=== PATIENT | female | born 1950 | race African-American/Black ===

== ENCOUNTER 2020-07-22 15:27 | Emergency (ER) | payer OTHER ==
[~2020-07-22] VITALS: Ht 160 cm; Wt 102.1 kg
[~2020-07-22 15:27] MED LIST: CARVEDILOL12.5 MG PO; CLONIDINE HCL0.2 M2 GT; FUROSEMIDE 40 M40 M1 PO; LANSOPRAZOLE30 MG PO; LOPRESSOR25 PO; LORAZEPAM 0.50.5 MG PO; METOCLOPRAMIDE10 MG PO; SERTRALINE HCL100 MG PO; ZANTAC 150MG T150 M1 PO
[2020-07-22 16:28] LABS: ABSOLUTE NEUTROPHILS 4.9 thou/uL (1.4-8.2); BASOPHILS 1.4 % (0.0-2.0); EOSINOPHILS 1.2 % (0.0-3.0); HEMATOCRIT 36.1 % (37.0-47.0); HEMOGLOBIN 11.9 gm/dL (12.0-15.0); LYMPHOCYTES 23.9 % (24.0-44.0); MCH 30.2 pg (26.0-34.0); MCHC 32.9 g/dL (28.0-37.0); MCV 91.8 fL (80.0-100.0); MONOCYTES 9.8 % (1.0-8.0); PLATELET COUNT 241 thou/uL (150-400); POLYS 63.7 % (36.0-66.0); RBC 3.94 mil/uL (4.20-5.00); RDW 16.4 % (10.5-14.5); WBC 7.6 thou/uL (4.0-11.0)
[2020-07-22 16:44] LABS: ANION GAP 9 mmol/L (7-16); BUN 13 mg/dL (7-18); CHLORIDE 106 mmol/L (98-107); CO2 29 mmol/L (21-32); CREATININE 0.5 mg/dL (0.6-1.0); GLUCOSE 101 mg/dL (74-106); POTASSIUM 3.7 mmol/L (3.5-5.1); SODIUM 144 mmol/L (136-145)
[2020-07-22 16:52] LABS: TROPONIN-I <0.06 ng/mL (<0.06)
[2020-07-22 19:31] VITALS: BP 161/71
--- NOTE | 2020-07-23 08:45 | EKG ---
[facility] [place] [address] [place] [address] ELECTROCARDIOGRAM REPORT Name: TEA FAUST V Room #: DEP [facility]#: [id number] Admission: 07/22/20 Attend Phys: Discharge: 07/22/20 Date of : 50 Report #: [id number] THIS REPORT FOR: cc: Luis Decker MD, Patrick S. MD Santiago, Patrick MD [facility] THIS REPORT FOR: //name// [facility] ED Test Date: 2020-07-22 Test Time: 15:44:37 Pat Name: TEA FAUST Department: Room: Gender: F Mine Shifter: NO : 1950 Requested By: Jeremias Calderon Order Number: [id number] MD: Luis Florence Measurements Intervals [place] Rate: 85 P: 22 CO: 145 QRS: 6 QRSD: 84 T: 6 QT: 387 QTc: 461 Interpretive Statements Sinus rhythm Probable left atrial enlargement Left ventricular hypertrophy Compared to ECG 05/24/2011 17:49:33 Left ventricular hypertrophy now present Electronically Signed On 07-23-2020 8:45:29 CDT by Luis Florence [email or web address] <ELECTRONICALLY SIGNED> By: Luis Florence MD, FAC 07/23/20 0845 1544 1544 Luis Florence MD, [facility] /EPI
== END 2020-07-22 19:45 | disposition home or self-care (01) ==
LOC: ER 15:27
PROVIDERS: Emergency Medicine
DX: U07.1 COVID-19 (principal); R45.851 Suicidal ideations; F10.920 Alcohol use, unspecified with intoxication, uncomplicated; I10 Essential (primary) hypertension; N64.4 Mastodynia; E66.01 Morbid (severe) obesity due to excess calories; Z90.711 Acquired absence of uterus with remaining cervical stump; Z79.899 Other long term (current) drug therapy; Z88.5 Allergy status to narcotic agent; Z68.39 Body mass index [BMI] 39.0-39.9, adult

== ENCOUNTER 2021-02-14 18:40 | Observation (INO) | payer OTHER ==
[~2021-02-14] VITALS: Ht 152.4 cm; Wt 120.2 kg
[2021-02-14 18:40] VITALS: BP 200/94
[2021-02-14 19:02] LABS: ABSOLUTE NEUTROPHILS 4.7 thou/uL (1.4-8.2); BASOPHILS 0.9 % (0.0-2.0); EOSINOPHILS 1.8 % (0.0-3.0); HEMATOCRIT 42.3 % (37.0-47.0); LYMPHOCYTES 30.4 % (24.0-44.0); MCH 30.1 pg (26.0-34.0); MCHC 33.1 g/dL (28.0-37.0); MCV 91.1 fL (80.0-100.0); PLATELET COUNT 238 thou/uL (150-400); POLYS 57.9 % (36.0-66.0); RBC 4.64 mil/uL (4.20-5.00); RDW 13.8 % (10.5-14.5); WBC 8.1 thou/uL (4.0-11.0)
[2021-02-14 19:11] LABS: ANION GAP 9 mmol/L (7-16); BUN 20 mg/dL (7-18); CALCIUM 9.1 mg/dL (8.5-10.1); CHLORIDE 106 mmol/L (98-107); CO2 29 mmol/L (21-32); CREATININE 0.8 mg/dL (0.6-1.0); GLUCOSE 100 mg/dL (74-106); POTASSIUM 3.5 mmol/L (3.5-5.1); SODIUM 144 mmol/L (136-145)
[2021-02-14 19:21] LABS: ALBUMIN 3.6 g/dL (3.4-5.0); LIPASE 37 U/L (73-393); SGOT 14 U/L (15-37); SGPT 15 U/L (14-59); TOTAL PROTEIN 7.5 g/dL (6.4-8.2); TROPONIN-I <0.06 ng/mL (<0.06)
[2021-02-14] MEDS ORDERED: FAMOTIDINE40 MG PO (19:56)
[2021-02-14] MEDS ORDERED: ROXICODONE30 MG PO (19:57)
[2021-02-14] MEDS ORDERED: OXYBUTYNIN CHLO10 MG PO (19:57)
[2021-02-14] MEDS ORDERED: SYMBICORT160 MCG/4. INH (19:58)
[2021-02-14] MEDS ORDERED: AMLODIPINE BESY10 MG PO (20:01)
[2021-02-14] MEDS ORDERED: TRAZODONE HCL50 MG PO (20:02)
[2021-02-14] MEDS ORDERED: VALSARTAN160 MG PO (20:03)
[2021-02-14] MEDS ORDERED: POTASSIUM CHLO10 ME1 PO (20:03)
[2021-02-14] MEDS ORDERED: CLONIDINE HCL0.1 MG PO (20:04)
[2021-02-14 21:10] VITALS: BP 166/74
[2021-02-14 21:40] VITALS: BP 147/84
[2021-02-15 04:17] VITALS: BP 99/46
--- NOTE | 2021-02-15 05:16 | NUR ---
ADMIT PT ADMITTED TO ROOM 360 FROM ED FOR CHEST PAIN. PT REPORTED IT HAS BEEN GOING ON 2 DAYS HAS BEEN USING ANTIACIDS, MAYBE TUMS BUT GOT NO RELIEF. PT UP WITH SBA GAIT BELT AND WALKER GAITY STEADY ABLE TO VOID IN BR. IVF'S NS INFUSING AT 75CC/HR. PT REPORTED PAIN TO RUQ AND ORDER FOR 1 TIME DOSE TRAMADOL 50 MG AND ONETIME DOSE OF KETORALAC 30 MG GIVEN IVP PT SLEPT FOR A COUPLE OF HOURS AFTER. NITRO PASTE APPLIE TO RIGHT CHEST IN ED TO BRING DOWN PRESSURE
[2021-02-15 05:41] LABS: ABSOLUTE NEUTROPHILS 2.9 thou/uL (1.4-8.2); EOSINOPHILS 1.7 % (0.0-3.0); HEMATOCRIT 39.6 % (37.0-47.0); HEMOGLOBIN 12.9 gm/dL (12.0-15.0); LYMPHOCYTES 36.1 % (24.0-44.0); MCH 29.4 pg (26.0-34.0); MCHC 32.5 g/dL (28.0-37.0); MCV 90.5 fL (80.0-100.0); PLATELET COUNT 204 thou/uL (150-400); POLYS 51.2 % (36.0-66.0); RBC 4.38 mil/uL (4.20-5.00); RDW 13.7 % (10.5-14.5); WBC 5.7 thou/uL (4.0-11.0)
[2021-02-15 05:56] LABS: ANION GAP 7 mmol/L (7-16); BUN 20 mg/dL (7-18); CALCIUM 8.6 mg/dL (8.5-10.1); CHLORIDE 107 mmol/L (98-107); CO2 27 mmol/L (21-32); CREATININE 0.7 mg/dL (0.6-1.0); GLUCOSE 92 mg/dL (74-106); POTASSIUM 3.6 mmol/L (3.5-5.1); SGOT 10 U/L (15-37); SGPT 6 U/L (30-65); SODIUM 141 mmol/L (136-145); TOTAL BILIRUBIN 0.8 mg/dL (0.2-1.0); TOTAL PROTEIN 6.4 g/dL (6.4-8.2)
[2021-02-15 07:55] VITALS: BP 158/70
[2021-02-15 08:10] LABS: TROPONIN-I <0.06 ng/mL (<0.06)
[2021-02-15 11:17] VITALS: BP 134/61
[2021-02-15 12:57] VITALS: BP 134/61
--- NOTE | 2021-02-16 07:01 | EKG ---
[address] [address] ELECTROCARDIOGRAM REPORT Name: TEA FAUST V Room #: 360-[facility]#: [id number] Admission: 02/14/21 Attend Phys: Davie Murdock MD Discharge: 02/15/21 Date of : 50 Report #: [id number] [facility] ED Test Date: 2021-02-14 Test Time: 18:50:03 Pat Name: TEA FAUST Department: Room: [facility] Gender: F Corporate Auditor: : 1950 Requested By: Davie Murdock Order Number: [id number] MD: Luis Florence Measurements Intervals [place] Rate: 85 P: 37 [place]: 145 QRS: 8 QRSD: 81 T: 22 QT: 381 QTc: 453 Interpretive Statements Sinus rhythm Left ventricular hypertrophy Borderline T abnormalities, anterior leads Compared to ECG 07/22/2020 15:44:37 T-wave abnormality now present Electronically Signed On 02-16-2021 7:00:59 CDT by Luis Florence [email or web address] <ELECTRONICALLY SIGNED> By: Luis Florence MD, [facility] 04/05/03 [phone] Luis Florence MD, FAC /EPI
== END 2021-02-15 14:10 | disposition home or self-care (01) ==
LOC: ER 18:40 → 3W 21:06 → EROBS 21:06 → 3W 21:06
PROVIDERS: Emergency Medicine; Nurse Practitioner; ADMIT Hospitalist; ATTEND Hospitalist
DX: R07.89 Other chest pain (principal); I10 Essential (primary) hypertension; Z79.899 Other long term (current) drug therapy; Z86.19 Personal history of other infectious and parasitic diseases
CPT/HCPCS: 10879

== ENCOUNTER 2021-08-30 11:37 | Inpatient (IN) | payer OTHER ==
[~2021-08-30] VITALS: Ht 160 cm; Wt 118.8 kg
--- NOTE | ~2021-08-30 | HC ---
[facility] [place] [address] CONSULTATION Name: TEA FAUST V Room #: [facility]- ADM IN M.R.#: [id number] Admission: 08/30/21 Attend Phys: Jimmie Brewer MD Discharge: Date of : 50 Report #: [id number] THIS REPORT FOR: cc: [facility] - Clinic physician unknown [facility] - Clinic physician unknown Flaco Sotomayor MD ~ DATE OF SERVICE: 08/31/2021 HISTORY OF PRESENT ILLNESS: This is a 70-year-old female patient who was evaluated by me for any neurological etiology for the patient's dizziness. I reviewed this patient's records. It would appear this patient feels dizzy when she tries to walk. This patient has respiratory problems. She said she was never a smoker and her respiratory problem started in August of last year with COVID. She is feeling better after coming to the hospital. She is being evaluated by multiple consultants, which include a hydrotreater operator as well as Cardiology. REVIEW OF SYSTEMS: Positive for chronic diastolic heart failure. She has a history of anxiety and diabetes. She got COVID last year. She does have a sleep apnea, but she does not take the CPAP on a regular basis. In fact, she very rarely takes that according to her. She has been seen by primary care recently. In fact, she went to them with the same problem. Review of systems also indicated that she said she had a stroke when she was young. When I asked her why she had a stroke, she said the doctor in [place] told her that it was because of bad tooth. So it is possible she had a subacute bacterial endocarditis, which caused her stroke. This was a relevant 14-point review of systems. She is not complaining of any new eye, ENT problems. She does have significant baseline cardiac problem, but she is not having any symptoms now, which is active. She does have still a significant respiratory difficulty. She does have some nausea, but did not complain to me anything about GI, musculoskeletal, constitutional, dermatological, hematological. She does have anxiety. PAST MEDICAL HISTORY: Positive for significant respiratory problem and respiratory problem appeared to be secondary to COVID as I understand because she said she was never a smoker. FAMILY HISTORY: Positive for stroke according to the patient. SOCIAL HISTORY: She said she never smoked or drank any alcohol. PHYSICAL EXAMINATION: VITAL SIGNS: Blood pressure is 142/63, respirations 22, pulse is 67, temperature is 98.1. HEENT: Her hearing and vision looks adequate. NECK: She has no thyroid mass. She has no carotid bruit. [address] [address] CONSULTATION Name: TEA FAUST V Room #: [facility] IN ..#: [id number] Admission: 08/30/21 Attend Phys: Jimmie Brewer MD Discharge: Date of : 50 Report #: [id number] LUNGS: She does have significant respiratory difficulty. ABDOMEN: She is morbidly obese. NEUROLOGIC: The patient's examination indicate that she is alert. She is responsive. She can follow simple commands. Her speech looks intact. Her memory and fund of knowledge is at her baseline. Cranial nerve examination II-XII does not appear to be showing any definite abnormality, but she said she has a different facial reaction all her life. To me, she moves all 4 extremities and does not appear to be having any evidence of old stroke. Her position sense is intact in all 4 extremities. Both plantars appear to be downgoing. LABORATORY DATA: White count is 5.6. Pulses are difficult to feel in the lower extremities, but she has no edema. Lab indicate a white count of 5.6 and GFR is 86. Her testing was reviewed. She had an MRI of the brain, which does not show any acute changes in the brain. She had a carotid Doppler, which was unremarkable. MRI does show what appeared to be pretty significant spinal stenosis as indicated in radiologist's notes. IMPRESSION: I do not think there is any neurological etiology for the patient's dizziness, it is most likely related to her desaturation and baseline cardiac problem because it comes only when she walks. I do not think any further neurological testing is indicated in this patient. I will sign off. This patient does have a pretty significant spinal stenosis on the portion of the cervical spine, which can be seen. I am not sure how good a candidate she is for neurosurgery consult and they can give their opinion also. Please call me if there is any question. Otherwise, I will sign off. By: 1459 [id number] Flaco Sotomayor MD /nt
--- NOTE | ~2021-08-30 | EMS ---
[place] [id number] EMS Patient Care Report Name: TEA FAUST V Room #: 212-P ADM IN M.R.#: [id number] Admission: 08/30/21 Attend Phys: Jimmie Brewer MD Discharge: Date of : 50 Report #: [id number] THIS REPORT FOR: //name// Report Transmitted: 08/31/2021 08:48 EMS Care Summary [place], [place]/[facility] Incident [id number] @ 08/30/2021 11:01 Incident Location [address] [place] [address] Patient TEA FAUST Female, 70 Years 1950 Patient Address [address] [place] [address] Patient History Congestive Heart Failure (CHF), Patient Allergies Codeine,Morphine, Patient Medications Lasix, Chief Complaint dizzy/light headed Disposition Transported No Lights/[place] Dispatch Reason Sick Person Transported To [facility] Narrative patient is found walking around the scene. patient states that for the last two days she has been dizzy and a little light headed. patient is also stating that is feeling weaker than normal. patient denies any pain or shortness of breath. patient denies any trauma or injury. patient is alert and talking. patient has [address] [address] EMS Patient Care Report Name: TEA FAUST V Room #: 212-P [facility] IN [facility].#: [id number] Admission: 08/30/21 Attend Phys: Jimmie Brewer MD Discharge: Date of : 50 Report #: [id number] no other complaints and stays alert during transport. Initial Vitals @11:16P: 81,R: 16,BP: 209/72,Pain: 0/10,GCS: 15,Glucose: 110,Revised Trauma: 12, Assessments @11:14MENTAL:No Abnormalities,SKIN:No Abnormalities,HEENT:Head/Face: No Abnormalities,Eyes: No Abnormalities,Neck/Airway: No Abnormalities,LUNG SOUNDS:General: No Abnormalities,Left Upper: No Abnormalities,Right Upper: No Abnormalities,Left Lower: No Abnormalities,Right Lower: No Abnormalities,ABDOMEN:General: No Abnormalities,Left Upper: No Abnormalities,Right Upper: No Abnormalities,Left Lower: No Abnormalities,Right Lower: No Abnormalities,PELVIS//GI:No Abnormalities,EXTREMITIES:Left Arm: No Abnormalities,Right Arm: No Abnormalities,Left Leg: No Abnormalities,Right Leg: No Abnormalities,PULSE:NEURO:No Abnormalities, Impression Generalized Weakness Procedures @11:20 General Comments Response: Unchanged @11:14 ALS Assessment Response: UnchangedSucceeded @11:15 Stretcher Response: Unchanged Timeline 10:59,Call Received 10:59,Dispatch Notified 11:01,Dispatched 11:02,En Route 11:12,On Scene 11:14,At Patient 11:14,ALS Assessment,Response: UnchangedSucceeded, 11:15,Stretcher,Response: Unchanged 11:16,BP: 209/72 M,PULSE: 81,RR: 16 R,SPO2: Ox,ETCO2: ,B,PAIN: 0,GCS: 15, 11:20,General Comments,Response: Unchanged 11:21,Depart Scene 11:33,At Destination 11:49,Call Closed Disclaimer v1.1 Copyright 2020 [employer] This EMS Care Summary contains data elements from the applicable legal record (which may be displayed differently). It is designed to provide pertinent information for the following purposes: continuity of care, clinical quality, [address] [place] [address] EMS Patient Care Report Name: TEA FAUST [place] Room #: 212-P ADM IN ..#: [id number] Admission: 08/30/21 Attend Phys: Jimmie Brewer MD Discharge: Date of : 50 Report #: [id number] and state data reporting. The complete legal record is available to ED staff and administrators of the receiving hospital in [address] Patient Tracker. All data is provided "as is."
[~2021-08-30 11:37] MED LIST changes: +AMLODIPINE BESY10 MG PO; +CLONIDINE HCL0.1 MG PO; +FAMOTIDINE40 MG PO; +OXYBUTYNIN CHLO10 MG PO; +POTASSIUM CHLO10 ME1 PO; +ROXICODONE30 MG PO; +SYMBICORT160 MCG/4. INH; +TRAZODONE HCL50 MG PO; +VALSARTAN160 MG PO
[2021-08-30 11:38] VITALS: BP 153/76
[2021-08-30 12:23] LABS: HEMOGLOBIN 14.1 gm/dL (12.0-15.0); MCH 28.9 pg (26.0-34.0); MCHC 32.7 g/dL (28.0-37.0); MCV 88.4 fL (80.0-100.0); RBC 4.87 mil/uL (4.20-5.00); RDW 13.7 % (10.5-14.5); WBC 5.6 thou/uL (4.0-11.0)
[2021-08-30 12:40] LABS: ANION GAP 9 mmol/L (7-16); BUN 24 mg/dL (7-18); CALCIUM 9.3 mg/dL (8.5-10.1); CHLORIDE 105 mmol/L (98-107); CO2 28 mmol/L (21-32); CREATININE 0.9 mg/dL (0.6-1.0); GLUCOSE 121 mg/dL (74-106); POTASSIUM 3.6 mmol/L (3.5-5.1); SODIUM 142 mmol/L (136-145)
[2021-08-30 12:48] LABS: ALBUMIN 3.4 g/dL (3.4-5.0); MAGNESIUM 2.2 mg/dL (1.8-2.4); PHOSPHORUS 4.6 mg/dL (2.5-4.9); SGOT 32 U/L (15-37); SGPT 13 U/L (30-65); TOTAL BILIRUBIN 0.9 mg/dL (0.2-1.0); TOTAL PROTEIN 7.2 g/dL (6.4-8.2)
[2021-08-30 12:55] LABS: SALICYLATE < 2.8 mg/dL (2.8-20.0)
[2021-08-30 13:19] LABS: URINE BILIRUBIN NEGATIVE (Negative); URINE BLOOD TRACE (Negative); URINE CLARITY CLEAR; URINE COLOR YELLOW; URINE GLUCOSE-RANDOM* NEGATIVE (Negative); URINE KETONES NEGATIVE (Negative); URINE LEUKOCYTES-REFLEX NEGATIVE (Negative); URINE NITRITE-REFLEX NEGATIVE (Negative); URINE PROTEIN (DIPSTICK) NEGATIVE (Negative); URINE SPECIFIC GRAVITY >= 1.030 (1.005-1.035); URINE UROBILINOGEN 0.2 E.U./dl (0.2-1.0)
[2021-08-30 13:28] LABS: AMP/METHAMP Negative (Negative); BARBITURATES Negative (Negative); BENZODIAZEPINES Negative (Negative); COCAINE Negative (Negative); METHADONE Negative (Negative); OPIATES POSITIVE (Negative); PCP Negative (Negative)
--- NOTE | 2021-08-30 15:37 | EKG ---
[place] [address] [facility] [place] [address] ELECTROCARDIOGRAM REPORT Name: TEA FAUST V [facility] [id number] Admission: 08/30/21 Attend Phys: Discharge: Date of : 50 Report #: [id number] [facility] ED Test Date: 2021-08-30 Test Time: 11:44:29 Pat Name: TEA FAUST Department: Room: Gender: F Natural Resource Technician: DAVE : 1950 Requested By: Rufino Chand Order Number: [id number] MD: Luis Florence Measurements Intervals [place] Rate: 71 P: 6 UT: 169 QRS: 4 QRSD: 94 T: 2 QT: 412 QTc: 448 Interpretive Statements Sinus rhythm Probable left atrial enlargement Left ventricular hypertrophy Borderline T abnormalities, anterior leads Compared to ECG 02/14/2021 18:50:03 No significant changes Electronically Signed On 08-30-2021 15:37:40 CDT by Luis Florence [email or web address] <ELECTRONICALLY SIGNED> By: Luis Florence MD, [facility] 08/30/21 1537 1144 1144 Lusi Florence MD, FACC /EPI
[2021-08-30 20:14] VITALS: BP 159/63
[2021-08-30 20:31] VITALS: BP 147/57
[2021-08-30 20:47] LABS: ALBUMIN 3.6 g/dL (3.4-5.0); TOTAL PROTEIN 6.9 g/dL (6.4-8.2)
[2021-08-30 20:50] VITALS: BP 156/71
[2021-08-31] VITALS (9 sets, daily range): BP systolic 118–165; BP diastolic 47–84
[2021-08-31 05:43] LABS: HEMATOCRIT 41.3 % (37.0-47.0); HEMOGLOBIN 13.6 gm/dL (12.0-15.0); MCH 29.3 pg (26.0-34.0); MCV 88.9 fL (80.0-100.0); RBC 4.64 mil/uL (4.20-5.00); RDW 13.7 % (10.5-14.5); WBC 5.6 thou/uL (4.0-11.0)
[2021-08-31 05:45] LABS: CREATININE 0.8 mg/dL (0.6-1.0); POTASSIUM 4.3 mmol/L (3.5-5.1)
--- NOTE | 2021-08-31 08:12 | NUR ---
ADMITTED THIS PATIENT FROM THE EMERGENCY AT [facility] 2049H ,PATIEN TIS ALERT AN DORIENTED X4.NO COMPLAINTS OF PAIN.NOT IN DISTRESS.ON NASAL CANNULA AT 3LPM, SATURATING WELL.ADMISSION COMPLETED.ALL NEEDS ATTENDED.
--- NOTE | 2021-08-31 13:52 | 2DMMODE ---
[facility] [address] [place] [address] 2 D/M-MODE ECHOCARDIOGRAM Name: TEA FAUST V Room #: 212-P ADM IN M.R.#: [id number] Admission: 08/30/21 Attend Phys: Jimmie Brewer MD Discharge: Date of : 50 Report #: [id number] THIS REPORT FOR: cc: [facility] - Clinic physician unknown [facility] - Clinic physician unknown Luis Florence MD [facility] ~ APPROVED REPORT Study performed: 08/31/2021 12:49:05 EXAM: Comprehensive 2D, Doppler, and color-flow Echocardiogram Patient Location: Bedside Room #: 212 Status: routine BSA: 2.17 HR: 66 bpm BP: 134/55 mmHg Rhythm: NSR Other Information Study Quality: Fair Indications COPD Dyspnea Hypertension/HDD Morbid obesity 2D Dimensions IVSd: 10.15 (7-11mm) LVOT Diam: 19.89 (18-24mm) LVDd: 50.35 mm PWd: 9.92 (7-11mm) Ascending Ao: 37.43 (22-36mm) LVDs: 28.88 (25-40mm) Left Atrium: 36.41 (27-40mm) Aortic Root: 30.88 mm Aortic Valve AoV Peak Reggie.: 2.52 m/s AO Peak Gr.: 25.37 mmHg LVOT Max P.07 mmHg AO Mean Gr.: 15.19 mmHg LVOT Mean P.30 mmHg AO V2 Mean: 1.81 m/s LVOT Max V: 1.23 m/s AO V2 VTI: 63.63 cm LVOT Mean V: 0.83 m/s SHARDA (VTI): 1.55 cm2 LVOT V1 VTI: 31.79 cm SHARDA Vmax: 1.52 cm2 [facility] [place] [place] [address] 2 D/M-MODE ECHOCARDIOGRAM Name: TEA FAUST Socorro Room #: [address] [place] [address].#: [id number] Admission: 08/30/21 Attend Phys: Jimmie Brewer, Discharge: Date of : 50 Report #: [id number] SV (LVOT): 98.76 mL Mitral Valve E/A Ratio: 0.7 MV Decel. Time: 307.66 ms MV E Max Reggie.: 0.81 m/s MV A Reggie.: 1.21 m/s MV PHT: 89.22 ms IVRT: 110.73 ms Pulmonary Valve PV Peak Reggie.: 1.12 m/s PV Peak Gr.: 5.03 mmHg Pulmonary Vein P Vein S: 0.55 m/s P Vein A: 0.36 m/s P Vein D: 0.33 m/s P Vein A Dur.: 138.4 msec P Vein S/D Ratio: 1.67 Tricuspid Valve TR Peak Reggie.: 2.27 m/s TR Peak Gr.: 20.69 mmHg PA Pressure: 21.00 mmHg Left Ventricle The left ventricle is normal size. There is normal LV segmental wall motion. There is normal left ventricular wall thickness. The left ventricular systolic function is normal. The left ventricular ejection fraction is within the normal range. LVEF is 60-65%. Grade I - abnormal relaxation pattern. Right Ventricle The right ventricle is normal size. The right ventricular systolic function is normal. Atria The left atrium size is normal. The right atrium size is normal. Aortic Valve The aortic valve is normal in structure. Aortic valve is calcified. Mild aortic regurgitation. Mild aortic stenosis. Mitral Valve The mitral valve is normal in structure. Trace mitral regurgitation. No evidence of mitral valve stenosis. [facility] [address] [place] [address] 2 D/M-MODE ECHOCARDIOGRAM Name: TEA FAUST V Room #: 212-P [facility] IN .R.#: [id number] Admission: 08/30/21 Attend Phys: Jimmie Brewer, Discharge: Date of : 50 Report #: [id number] Tricuspid Valve The tricuspid valve is normal in structure. There is trace tricuspid regurgitation. Estimated PAP 21 mmHg plus the right atrial pressure. There is no pulmonary hypertension. Pulmonic Valve The pulmonary valve is normal in structure. There is no pulmonic valvular regurgitation. Great Vessels The aortic root is normal in size. The inferior vena cava is not well visualized. Pericardium There is no pericardial effusion. <Conclusion> Normal left ventricle size/wall thickness central ejection fraction 60-65% Normal right ventricular size/function Normal right ventricle size/function Normal atrial size Mild aortic valve stenosis mean gradient of 15 mmHg Mild mitral annular calcification Trace tricuspid valve insufficiency Pulmonary systolic pressure estimated 21 mmHg No pericardial effusion Normal aortic root size <ELECTRONICALLY SIGNED> By: Luis Florence MD, FACC 08/31/21 1352 135 51 Luis Florence MD, FACC /INF
--- NOTE | 2021-08-31 17:47 | NUR ---
PT IS A/OX4, ABLE TO MAKE NEEDS KNOWN. VSS,AFEBRILE. SR ON MONITOR. ORHTOSTATIC BP, ECHO AND MRI OF HEAD DONE TODAY. IV IN RIGHT AC WITH SOME POSITIONAL PAIN. ABULATES WITH SLOW UNSTEADY GAIT SBA. POC TO FOLLOW UP WITH PULMONOLOGY IN AM. PT/OT EVALUATED TODAY NO CONCERNS AT THIS TIME. FALL PRECAUTIONS IN PLACE.
--- NOTE | 2021-08-31 18:22 | NUR ---
met with patient. She [place] no steps. She uses no assistive device for ambulation prior to admission. She has caregiver in home 7 days a week for 4 hours a day. She reports she spent 91 days in hospital [facility] with YANET. She reports she rec HH with [facility] at that time. Patient has home oxygen with [employer]. she uses prn. Discussed HH care patient unsure if needed. She has pulse oximetry at home and blood pressure cuff. She reports supportive family and children. gave HH list for review. [facility] following.
--- NOTE | 2021-09-01 02:35 | NUR ---
PT IS ALERT AND ORIENTED X4. LUNGS ARE CLEAR. ON 3 LITERS NASAL CANULA. DENIES ANY COMPLAINTS OF PAIN . FAMILY VISITING THIS EVENING. ABDOMEN IS ROUND AND OBESE BOWEL SOUNDS ACTIVE X4. NO DIZZINESS NOTED UPON STANDING. CALL LIGHT WITHIN REACH IF NEEDS ASSISTANCE PER NURSING.
[2021-09-01 05:25] LABS: CALCIUM 9.2 mg/dL (8.5-10.1); CREATININE 0.8 mg/dL (0.6-1.0); MAGNESIUM 2.2 mg/dL (1.8-2.4); POTASSIUM 4.7 mmol/L (3.5-5.1)
[2021-09-01 05:32] LABS: HEMATOCRIT 39.7 % (37.0-47.0); HEMOGLOBIN 12.9 gm/dL (12.0-15.0); MCH 29.3 pg (26.0-34.0); MCHC 32.6 g/dL (28.0-37.0); MCV 89.8 fL (80.0-100.0); RBC 4.42 mil/uL (4.20-5.00); RDW 14.1 % (10.5-14.5); WBC 13.3 thou/uL (4.0-11.0)
[2021-09-01 07:24] VITALS: BP 133/58
[2021-09-01 20:26] VITALS: BP 136/55
[2021-09-02 03:21] VITALS: BP 138/65
[2021-09-02 03:45] LABS: HEMATOCRIT 39.7 % (37.0-47.0); HEMOGLOBIN 12.7 gm/dL (12.0-15.0); MCH 28.6 pg (26.0-34.0); MCV 89.5 fL (80.0-100.0); RBC 4.43 mil/uL (4.20-5.00); RDW 14.2 % (10.5-14.5); WBC 10.5 thou/uL (4.0-11.0)
[2021-09-02 05:51] LABS: CALCIUM 9.1 mg/dL (8.5-10.1); CREATININE 0.8 mg/dL (0.6-1.0); MAGNESIUM 2.3 mg/dL (1.8-2.4); POTASSIUM 4.6 mmol/L (3.5-5.1)
[2021-09-02 07:29] VITALS: BP 142/56
[2021-09-02 11:07] VITALS: BP 166/66
[2021-09-02] MEDS ORDERED: PREDNISONE 10 M10 MG PO (12:53)
[2021-09-02] MEDS ORDERED: LEVOFLOXACIN750 MG PO (12:53)
[2021-09-02 13:50] VITALS: BP 166/66
--- NOTE | 2021-09-02 14:34 | NUR ---
PT AFEBRILE, ADEQUATE UOP, NO BM, FAIR APPETITE. PT TO BE DC HOME TODAY WITH FAMILY. [employer] [place] CERVICAL COLLAR WAS PROVIDED, PT WAS EDUCATED ON PROPER USE AND FITTING. PT IS PLANNED TO SEE NEUROSURGERY ON 09/13/21, PT DOES NOT WANT TO WAIT LONGER FOR CT-SCAN, SHE STATES SHE WILL CALL AND SCHEDULE SAID PROCEDURE BEFORE 09/13, OUT-PT SCHEDULING PHONE NUMBER WAS PROVIDED. PT WILL HAVE C-COLLAR ON AT TIME OF DC. PT HAS BEEN THOUROUGHLY UPDATED AND EDUCATED ON PT CONDITION, POC, AND DC INSTRUCTIONS. PT PROGRESSED TOWARDS POC.
== END 2021-09-02 15:32 | disposition home or self-care (01) | DRG 193 ==
LOC: ER 11:37 → 2N 17:45 → EROBS 17:45 → 2N 20:31
PROVIDERS: Emergency Medicine; ADMIT Internal Medicine; ATTEND Internal Medicine
DX: J18.9 Pneumonia, unspecified organism (principal); J96.21 Acute and chronic respiratory failure with hypoxia; I50.32 Chronic diastolic (congestive) heart failure; Z88.8 Allergy status to other drugs, medicaments and biological substances; Z79.899 Other long term (current) drug therapy; J43.9 Emphysema, unspecified; I11.0 Hypertensive heart disease with heart failure; K21.9 Gastro-esophageal reflux disease without esophagitis; Z86.73 Personal history of transient ischemic attack (TIA), and cerebral infarction without residual deficits; F41.1 Generalized anxiety disorder; Z20.822 Contact with and (suspected) exposure to COVID-19; E86.0 Dehydration; M48.02 Spinal stenosis, cervical region
CPT/HCPCS: 10081

== ENCOUNTER → 2021-09-03 | Outpatient (CLI) | payer OTHER ==
[~2021-09-03] MED LIST changes: +LEVOFLOXACIN750 MG PO; +PREDNISONE 10 M10 MG PO
== END ==
LOC: RAD 11:18
DX: M47.812 Spondylosis without myelopathy or radiculopathy, cervical region (principal); M48.02 Spinal stenosis, cervical region

== ENCOUNTER → 2021-09-08 | Outpatient (CLI) | payer OTHER ==
[~2021-09-08] MED LIST changes: +IBUPROFEN 800800 M1 PO
[2021-09-08 14:55] LABS: APTT 24.7 Seconds (24.5-32.8); INR 1.02; PROTIME 11.1 Seconds (10.5-12.1)
== END ==
LOC: PAC 13:11
PROVIDERS: ATTEND Specialist
DX: Z01.812 Encounter for preprocedural laboratory examination (principal); M48.02 Spinal stenosis, cervical region

== ENCOUNTER 2021-09-13 07:54 | Inpatient (IN) | payer OTHER ==
[2021-09-13] VITALS (9 sets, daily range): BP systolic 150–204; BP diastolic 69–77
[~2021-09-13] VITALS: Ht 160 cm; Wt 118.1 kg
--- NOTE | 2021-09-13 19:15 | NUR ---
PT ARRIVED FROM IR TO ICU AT 1915. PT ARRIVED WITH C-COLLAR AND LUMBAR DRAIN IN PLACE. PT WAS TRANSFERED TO ICU BED, ATTACHED TO MONITORS, AND ASSESSED PER ICU PROTOCOL. PT IS A&OX4, C/O 8/10 PAIN IN HER NECK. INCISION AND DRAIN WERE VISUALIZED BEFORE IR NURSE LEFT. VERBAL ORDERS OBTAINED FROM FISHERIES OFFICER TO DRAIN 15 ML OFF DRAIN Q1H. [address] GUEVARA'S CHOCOLATE COATER TO CLARIFY ORDERS AND THAT NOTHING ELSE NEEDED TO BE DONE TO THE DRAIN AT THIS TIME.
[2021-09-14] VITALS (24 sets, daily range): BP systolic 113–158; BP diastolic 44–68
--- NOTE | 2021-09-14 11:10 | NUR ---
FLORIAN Mejia present updated on pt status including Lumbar Puncture drain present to drainage. pt has prexisting numbness in r hand and slight mouth droop/decreased smile on Left from previous CVA. requested diet order, specifics on mobility when eating related to log rolling and parameters for LP drainage amounts. Dr. Salter present, requested home meds to be restarted including bp meds and Dr. Salter requesting pt to be titrated off o2 during day. pt uses 02 at home with activity and at bedtime. pt trialed with o2 down to 1L/nc then desated to 89%. replaced on 2L/nc. RT Smiley notified. son present in pt room, rn updating pt and family member on progress.
--- NOTE | 2021-09-14 12:59 | NUR ---
A RIGHT UPPER ARM MIDLINE WAS PLACED IN THE CEPHALIC VEIN PER HOSPITAL POLICY AFTER A VERBAL CONSENT WAS OBTAINED. THE LINE WAS TRIMMED TO 15CM AND ADVANCED WITHOUT DIFFICULTY. SECURED AND RELEASED FOR USE
[2021-09-15] VITALS (25 sets, daily range): BP systolic 98–178; BP diastolic 37–68
--- NOTE | 2021-09-15 16:00 | NUR ---
INITIAL ASSESSMENT: Received consult. SW reviewed chart and spoke with nursing and attending physician. Pt was admitted following cervical decompression surgery. Pt has lumbar drain in place due to dural leak. Pt is in the ICU. Pt will need to lay flat for 5 days. MICHAEL met with pt and dtr, Becky, at bedside. Introduced role of SW. Pt is alert/orientated x 4. Pt currently is on O2. Pt is on 2L O2 at home. Home O2 is provided by [employer]. Pt has used [facility] in the past. Pt had extended hospitalization at [facility] due to COVID in 2020. Pt states her plan is to discharge to her dtr's home when discharged: [address] [facility] [address] Becky: [phone]. Pt goes to the [facility] for primary care. MICHAEL is following to assist as needed with discharge planning.
--- NOTE | 2021-09-15 16:15 | NUR ---
I sat down and spoke with the daughter and her mother for 15-20 minutes discussing the increase in pain medications specifically for this pt, the lorazepam, muscle relaxer, ice for her neck, heating pad and warm blankets for her Left shoulder. pt informed of her Left arm discomfort as positional discomfort associated with the positioning in surgery. FLORIAN Nur yesterday described to pt that she needs to move her arm to increase mobility to prevent an immobilized shoulder. even when encouraged pt moves her arm minimally and only a few times with much encouragement, then refuses to do any more. also, informing pt and family that the pt needs to take deep breaths and cough frequently ie every hour, 5-10 times. pt takes only deep breaths occasionally. informed this increases the chance for pneumonia complications. pt does cough up some unobserved sputum. discussed in detail pain medications and increased risks for complications with lack of pt movement in her arm and deep breathing. complications may increase related narcotic pain medications therefore she needs to work to avoid complications. . the daughter told me, "I just want you to be nice to my mother, you don't seem like you care and this is what you are getting paid for". daughter did come to rn and apologize, then stated, "I love my mother and I just want her cared for". Informed that I would and other RN's will also make sure she is cared for appropiately.
[2021-09-16] VITALS (25 sets, daily range): BP systolic 91–191; BP diastolic 30–80
--- NOTE | 2021-09-16 06:31 | NUR ---
Pt is progressing slowly. Pt CSF is draining 15 cc every hour and is clear. Pt lung sounds are clear with diminish in both left and right lower lobes. Pt is is sinus rhythm. Pt is able to tolerate PO fluids without nausea. Pt is A&O x4 with right sided weakness and droop from previous stroke. Still c/o of neck and upper back pain, adequately controlled with oral pain meds. c/o of slight headache when CSF is drained.
--- NOTE | 2021-09-16 06:42 | NUR ---
Agree with charting done by SN Myrtle.
--- NOTE | 2021-09-16 11:11 | NUR ---
SW reviewed chart and spoke with nursing and hospitalist. Pt is POD#3 cervical decompression and fusion C3-7. Pt has lumbar drain in place. Pt is on bed rest for total of 5 day. PT eval ordered today for UE ROM in bed. At this time, plan is for pt to discharge to her dtr's home when medically stable. Pt has used [facility] in the past. MICHAEL is following to assist as needed with discharge planning.
[2021-09-16 15:09] LABS: ABSOLUTE NEUTROPHILS 8.5 thou/uL (1.4-8.2); BASOPHILS 0.3 % (0.0-2.0); EOSINOPHILS 1.4 % (0.0-3.0); HEMOGLOBIN 11.3 gm/dL (12.0-15.0); LYMPHOCYTES 7.7 % (24.0-44.0); MCH 28.9 pg (26.0-34.0); MCHC 31.2 g/dL (28.0-37.0); MCV 92.7 fL (80.0-100.0); MONOCYTES 7.5 % (1.0-8.0); PLATELET COUNT 107 thou/uL (150-400); POLYS 83.1 % (36.0-66.0); RBC 3.89 mil/uL (4.20-5.00); RDW 14.4 % (10.5-14.5); WBC 10.2 thou/uL (4.0-11.0)
[2021-09-16 15:23] LABS: BUN 14 mg/dL (7-18); CALCIUM 8.4 mg/dL (8.5-10.1); CREATININE 0.7 mg/dL (0.6-1.0); GLUCOSE 125 mg/dL (74-106); MAGNESIUM 2.1 mg/dL (1.8-2.4); SGOT 17 U/L (15-37); SGPT 15 U/L (30-65); TOTAL BILIRUBIN 0.7 mg/dL (0.2-1.0); TOTAL PROTEIN 5.5 g/dL (6.4-8.2)
[2021-09-16 15:53] LABS: CHLORIDE 102 mmol/L (98-107); POTASSIUM 4.9 mmol/L (3.5-5.1)
[2021-09-16 15:55] LABS: SODIUM 131 mmol/L (136-145)
[2021-09-16 15:56] LABS: ANION GAP < 0 mmol/L (7-16); CO2 31 mmol/L (21-32)
--- NOTE | 2021-09-16 18:50 | NUR ---
rested comfortably through the shift, awakened easily. more drowsy when respositioned about 1645. motor and neuro intact with the exception of the month and day of month. pt allowed rn to perform passive ROM to abraham shoulders. during and after repositioning, pt requesting pain medication. Rn explained to pt and family that the pt is too drowsy to have additional pain med at this time. offered information that this rn and the following nurses would re- evaluate when additional pain medication administration would be appropiate. when pt taking deep breaths with use of incentive spirometer, she generally pulls 250cc and pulled 500cc x 2. clear sputum with productive cough.
--- NOTE | 2021-09-16 20:52 | NUR ---
On initial assessment, pt very lethargic, difficult to arouse; will follow simple commands, marketing analytics analyst equal, moves feet equally, pupils ETHAN, brisk, 4. Pt still c/o of back and neck pain, 7/10, but then falls asleep almost immediately. Pt also c/o of how drowsy she is. Lumbar drain intact, CSF clear, draining 15 cc/hr as ordered. Roseanne Bryan NP notified. Will check ABG for possible hypercarbnia.
[2021-09-16 20:59] LABS: HCO3 28.1 mmol/L (22.0-26.0); PCO2 55.6 mmHg (35.0-45.0); PO2 72.6 mmHg (80.0-100.0); pH 7.331 (7.360-7.450); sO2 93.2 % (92.0-98.0)
--- NOTE | 2021-09-16 21:26 | NUR ---
Pt pCO2 on ABG was 55; pt more awake and alert after being stuck for ABG. Does not remember most of day and who visited, oriented to being in hospital, what day it is. Able to swallow without signs of aspitation.
--- NOTE | 2021-09-16 21:39 | NUR ---
Spoke with pt's oldest daughter, Mary, and pt's niece, Angela, to update them on pt status and plan of care.
[2021-09-17] VITALS (27 sets, daily range): BP systolic 130–173; BP diastolic 37–75
--- NOTE | 2021-09-17 00:28 | NUR ---
Pt somulent again, slow to respond to commands but eventually able to move all extremities. Pupils ETHAN and 3. Sat remains > 95% on 2 liter canula, respiration regular but sonorous. When orally suctioned pt will grab yonker with left hand and say "Don't". Roseanne Bryan NP notified, in route to examine pt.
--- NOTE | 2021-09-17 01:01 | NUR ---
Roseanne Bryan COOKER HELPER here at 0050 to examine pt. Pt given 0.2 mg of Narcan at 0055. Pt woke up, much more responsive and able to respond to commands..
--- NOTE | 2021-09-17 05:48 | NUR ---
PT HAS ALTERATION IN MOOD. PT IS AGGITATED THAT NO PAIN MEDS CAN BE GIVEN AT THIS TIME DUE TO POOR REACTION AROUND MIDNIGHT THAT CAUSED PT TO BE VERY LETHARGIC AND DIFFICULT TO AROUSE. PT IS DENYING THE REACTION WAS IN RESPONSE TO PAIN MEDS AND STATING THE REACTION CAME FROM THE LIDOCAINE PATCH THAT WAS REMOVED AT START OF SHIFT. AFTER REPEAT EXPLANATION OF THE REACTION COMING FROM THE PO PAIN MEDS GIVEN, THE PATIENT GROWS INCREASINGLY AGGITATED. PT PROVIDED WITH ICE PACKS AND REPOSITIONING FOR PAIN MANAGEMENT.
--- NOTE | 2021-09-17 06:45 | NUR ---
CALLED DESIGNATED PT JESSENIAENATIVEESTEFANY, AND UPDATED HER ON PT STATUS. PT REMAINS MILDLY CONFUSED AND INTERMITTENTLY PARANOID.
--- NOTE | 2021-09-17 07:25 | NUR ---
SPOKE WITH PT'S DAUGHTER, JAYDEN, AND UPDATED HER ON HER MOTHER'S STATUS.
--- NOTE | 2021-09-17 12:03 | NUR ---
SW reviewed chart and spoke with nursing and attending physician. Pt remains in ICU. Pt is POD#4 cervical decompression. Pt has lumbar drain in place. Drain to possibly be clamped over the weekend. Pt remains on bedrest. Pulmonary consulted today. No weekend discharge planned. PT/OT evals to be ordered when pt is able to participate. SW is following to assist as needed with discharge planning.
--- NOTE | 2021-09-17 13:50 | NUR ---
PT IS REQUESTING THAT HER PAIN MEDICATIONS BE SWITCHED FROM 7.5-15MG OXYCODONE TO 2 OR 5 MG. PT STATES THAT IT IS MAKING HER TOO DROWSY AND BELIEVES IT IS EFFECTING HER BREATHING. HOWEVER, PT HAS REMAINED IN HIGH 90'S FOR OXYGENATION WITH 2 LPM NC AND RR HAVE REMAINED WITHIN NORMAL LIMITS. SHE WOULD LIKE TO DECREASE THE PAIN MEDICATION DOSAGE SHE BELIEVES IT IS TOO STRONG.
--- NOTE | 2021-09-17 18:26 | NUR ---
PT PROGRESSING VERY MARGINALLY TOWARDS D/C GOAL AT THIS TIME. STILL COMPLAINS OF CHRONIC NECK AND LEFT SHOULDER PAIN. STATES HER HEAD HURTS DURING DRAINING OF LUMBAR DRAIN. PT C/O OF PAIN WHEN ASKING HER TO DO ROM EXERCISES HOWEVER PATIENT HAS FULL USE OF ARMS AND LEGS AND NORMAL FEELINGS IN ALL 4 LIMBS. PT REMAINS SUPINE POSITION, HAS PERIODS OF CONFUSION BUT OVERALL IS A&OX4 WHEN ASKED. PT AND FAMILY ALSO STATE PT TAKES OXYCODONE AT HOME, SHE BREAKS UP TABLETS AND HAS HALF A TAB EVERY FEW HOURS THROUGHOUT THE DAY WHEN AT HOME, MAY HAVE SOME KIND OF DEPENDENCE. I BELIEVE PT NEEDS TO BE ON SOFT FOOD OR LIQUID DIET WHEN LAYING SUPINE, PT NOT ABLE TO SWALLOW WHOLE FOODS LAYING SUPINE POSITION. FAMILY AT BEDSIDE AT ALL TIMES, RECORDING EVENTS IN JOURNAL. WILL CONTINUE TO FOLLOW POC.
[2021-09-18] VITALS (33 sets, daily range): BP systolic 104–196; BP diastolic 44–82
[2021-09-19] VITALS (27 sets, daily range): BP systolic 134–182; BP diastolic 48–80
--- NOTE | 2021-09-19 07:59 | NUR ---
Pt is progressing towards of care as evidenced by : pt is a&o x 4, non dependent on oxygen support, non-dependent on gtts for BP support. Pt kept on supine position with lumbar drain 15 cc/hr.
--- NOTE | 2021-09-19 10:19 | NUR ---
SPOKE WITH PT FAMILY MEMBER (BROTHER AND ESTEFANY) THIS AM VIA TELEPHONE, GAVE UPDATES ON PT CONDITION. PT REMAINS IN SUPINE POSITION STILL DRAINING 15CC EVERY 1 HOUR, AWAITING ORDER TO D/C DRAIN. PT ALSO C/O OF CHEST PAIN AFTER EATING APPLESAUCE AND PLACEMENT OF LIDOCAINE PATCH. STAT EKG ORDER AND DR. DIMITRIS JENKINS.
[2021-09-19 12:26] LABS: BE(vivo) 4.7 mmol/L (-2 to +3); HCO3 29.2 mmol/L (22.0-26.0); PCO2 43.2 mmHg (35.0-45.0); PO2 91.6 mmHg (80.0-100.0); pH 7.448 (7.360-7.450); sO2 97.3 % (92.0-98.0)
--- NOTE | 2021-09-19 12:42 | EKG ---
[place] [address] [facility] [email or web address] [address] ELECTROCARDIOGRAM REPORT Name: TEA FAUST V Room #: [facility]- ADM IN M.R.#: [id number] Admission: 09/13/21 Attend Phys: Patrick Castro, Discharge: Date of : 50 Report #: [id number] [facility] Test Date: 2021-09-19 Test Time: 10:26:39 Pat Name: TEA FAUST Department: Room: [facility] Gender: F Folder Machine Operator: JAVAN : 1950 Requested By: Dayana Grey Order Number: [id number] MD: Spencer Jones Measurements Intervals Holley Rate: 81 P: 51 IN: 147 QRS: 25 QRSD: 79 T: 31 QT: 374 QTc: 434 Interpretive Statements Sinus rhythm No significant abnormality Compared to ECG 08/30/2021 11:44:29 Left ventricular hypertrophy no longer present Electronically Signed On 09-19-2021 12:42:31 COORDINATOR OF HEALTH SERVICES by Spencer Jones [email or web address] <ELECTRONICALLY SIGNED> By: Spencer Jones MD, [facility] 09/19/21 1242 1026 1026 Spencer Jones MD, FACC /EPI
[2021-09-19 13:21] LABS: ABSOLUTE NEUTROPHILS 6.2 thou/uL (1.4-8.2); BASOPHILS 0.4 % (0.0-2.0); EOSINOPHILS 1.7 % (0.0-3.0); HEMATOCRIT 35.8 % (37.0-47.0); HEMOGLOBIN 11.8 gm/dL (12.0-15.0); LYMPHOCYTES 12.3 % (24.0-44.0); MCH 29.1 pg (26.0-34.0); MCHC 32.9 g/dL (28.0-37.0); MCV 88.4 fL (80.0-100.0); MONOCYTES 9.9 % (1.0-8.0); POLYS 75.7 % (36.0-66.0); RBC 4.05 mil/uL (4.20-5.00); RDW 14.3 % (10.5-14.5); WBC 8.1 thou/uL (4.0-11.0)
[2021-09-19 13:24] LABS: CALCIUM 8.7 mg/dL (8.5-10.1); CREATININE 0.4 mg/dL (0.6-1.0); POTASSIUM 3.7 mmol/L (3.5-5.1)
[2021-09-19 13:34] LABS: MAGNESIUM 1.9 mg/dL (1.8-2.4); PHOSPHORUS 2.6 mg/dL (2.6-4.7); TOTAL BILIRUBIN 1.1 mg/dL (0.2-1.0)
[2021-09-19 14:35] LABS: PLATELET COUNT 161 thou/uL (150-400)
--- NOTE | 2021-09-19 15:16 | NUR ---
ATTEMPTED TO CONTACT DR. GUEVARA'S OFFICE AT 1500 THIS AFTERNOON AND WAS TOLD TWO DIFFERENT TIMES BY THE [facility] SERVICE THAT THEY DO NOT SEE PATIENTS AT THIS HOSPITAL HOWEVER THIS PERFORMED THE SURGERY ON THE PATIENT. PT WAS SUPPOSE TO HAVE LUMBAR DRAIN CLAMPED TUESDAY 09/18 AND DRAIN REMOVED TODAY WITH HOPES OF TRANSFERRING PATIENT OUT OF THE ICU ON 09/20. HOWEVER NO PROVIDERS FROM THIS NEURO SURGERY GROUP HAVE BEEN THIS WEEKEND TO ASSESS THIS PATIENT. WAS ALSO TOLD BY VISION TEACHER THAT THE SPINNING OPERATOR PROVIDER FOR NEURO GROUP WOULD NOT TAKE MY CALL AND SUGGESTED THAT I CONTACT THE HOSPITALIST OF THIS HOSPITAL. WILL CONTINUE TO TRY AND ADVOCATE FOR THE PATIENT.
[2021-09-20] VITALS (17 sets, daily range): BP systolic 124–182; BP diastolic 51–78
--- NOTE | 2021-09-20 01:15 | NUR ---
Patient's daughter, Angela Arias called from 2129 - 2135. She was informed and educated on the patient's condition and her plan of care
--- NOTE | 2021-09-20 07:35 | NUR ---
Patient is progressing towards plan of care as evidenced by discontinuation of lumbar drainage. Patient is A&O x 4. Pt was administred hydrocodone for pain and ativan for anxiety during shift.
--- NOTE | 2021-09-20 11:33 | NUR ---
MICHAEL reviewed chart and spoke with nursing and attending physician. Pt remains in ICU. Lumbar drain has been discontinued. Therapy evals ordered. 5N consult ordered. Pt may transfer out of ICU pending bed availability. MICHAEL met with pt and son at bedside. Provided update and discussed post-acute plans. Pt is hoping to be able to get home with ([facility]). Pt is agreeable with considering post-acute placement if needed. MICHAEL provided in-network SNF list for review and discussed 5N eval and need for insurance auth for post-acute placement. Both pt and son verbalized understanding. MICHAEL faxed HH referral to [facility] for review. Awaiting input from therapy evarvin at this time. MICHAEL is following to assist as needed with discharge planning.
[2021-09-20 13:53] LABS: HEMATOCRIT 34.7 % (37.0-47.0); HEMOGLOBIN 11.2 gm/dL (12.0-15.0)
[2021-09-20 14:07] LABS: CALCIUM 8.9 mg/dL (8.5-10.1); CREATININE 0.5 mg/dL (0.6-1.0); POTASSIUM 3.7 mmol/L (3.5-5.1)
--- NOTE | 2021-09-20 19:01 | NUR ---
lumbar drain out this morning by FLORIAN Nur. Pt alert and oriented X3. pt able to move all extremities. pt complaining of pain and spasm. Pt pain and spasm was relieved with prn medications. Salt Operator representation came and fit tested patient for cervical collar today. They will come back tomorrow with new collar. Pt progressing towards goals. continue to monitor.
[2021-09-21] VITALS: BP 111/42
[2021-09-21 04:00] VITALS: BP 128/41
[2021-09-21 08:00] VITALS: BP 138/39
--- NOTE | 2021-09-21 11:52 | NUR ---
SW reviewed chart and spoke with nursing and attending physician. Pt remains in ICU. Pt to transfer out of ICU when a bed is available. C-collar ordered for pt. PT/OT evals will occur once c-collar has been delivered and fitted. SW notified 5N clinical rehab specialist. 5N to evaluate pt after therapy evals. Pt and family have been provided with in-network SNF list for review. Will need insurance auth for post-acute placement. MICHAEL is following to assist as needed with discharge planning.
[2021-09-21 12:01] VITALS: BP 143/87
--- NOTE | 2021-09-21 15:50 | NUR ---
Report given to RAVINDER Ley from [facility]. pt alert and oriented x3. pt complaining of pain and was given hydrocodone for pain prior to transfer to [facility]. Pt daughter was at bedside during transfer. pt's belonings were taken with the patient to upstairs. pt progressing towards goal. continue to monitor.
--- NOTE | 2021-09-21 18:50 | NUR ---
Pt was transfer from ICU. PT A & O x4. Pt is room air. PT is SR on the tele. Pt has nielsen noted. Pt has midline to right upper arm noted. pt recieved medications and PRN medications as ordered. Pt is able to make needs known
[2021-09-21 19:32] VITALS: BP 117/51
[2021-09-21 20:00] VITALS: BP 117/51
--- NOTE | 2021-09-21 21:53 | NUR ---
PT RESTING IN BED, EASILY AWAKENED. PT NOT USING OXYGEN PER NC. PT DECLINED HS SNACK. LUNGS DIMINISHED. KAHN TO DD. OBESE. NECK DRESSING INTACT. PT ASSISTED WITH REPOSITIONING. REPORTS PAIN IN L SHOULDER NOT IN NECK, PRN PROVIDED. PT CALLS FOR ASSISTANCE. C COLLAR AT BEDSIDE, TO BE USED WHEN OOB.
--- NOTE | 2021-09-21 22:48 | NUR ---
PT REPORTED CONTINUED L SHOULDER PAIN, OFFERED HYDROCODONE AND FLEXARIL AND PRN FOR SLEEP. PT DECLINED AND ASKED IF DR COULD BE ASKED FOR IV MEDICATION. PROVIDER SOCIAL WORK MANAGER WANTED CURRENT MEDICATION REGIME TRIED PRIOR TO NEW ORDERS. PT STATED SHE IS TAKING TO MANY DIFFERENT TYPES OF PAIN MEDS AND WANTS TO TALK WITH SOMEONE IN THE AM. PT DID TAKE HYDROCODONE AND RV MECHANIC CONTACTED FOR [facility], PT HAD ORDER.
[2021-09-22 03:56] VITALS: BP 124/57
[2021-09-22 07:46] VITALS: BP 126/60
--- NOTE | 2021-09-22 09:04 | NUR ---
THIS AM PT VERBALIZED THAT SHE FEELS FRUSTRATED THAT HER PAIN HAS "NOT BEEN WELL MANAGED." PT REFUSES AM MEDICATION AND LIDOCAINE PATCH BECAUSE "IT DOES NOT WORK." PT STATED THAT SHE WILL WAIT FOR PHYSICIAN TO DO ROUNDS TO DISCUSS WITH THEM DIFFERENT OPTIONS FOR PAIN.
[2021-09-22 14:31] VITALS: BP 144/47
--- NOTE | 2021-09-22 15:21 | NUR ---
SW reviewed chart and spoke with nursing and attending physician. Pt transferred to 3W from ICU. PT/OT dianelys ordered. 5N consulted and is following for possible admission to inpt acute rehab. Will need insurance authorization. MICHAEL received call from [facility] stating they are not able to take pt on service due to staffing. MICHAEL is following to assist as needed with discharge planning.
[2021-09-22 19:23] VITALS: BP 127/50
[2021-09-23 01:30] VITALS: BP 133/73
[2021-09-23 04:07] VITALS: BP 132/66
--- NOTE | 2021-09-23 06:50 | NUR ---
PROGRESS PT A/O X4. VSS. TELEMETRY INTACT READING SR/ST WITH RATES IN THE 80'S TO LOW 100'S. INCISION TO POSTERIOR CERVICAL NECK COVERED WITH INTACT CLEAN DRY SURGICAL DRESSING. PAIN IS DIFFICULT TO CONTROL PT RATES IT AN 8 MOST OF THE TIME, ALTERNATING OXYCODONE AND HYDROCODONE AND GETTING A DOSE OF PAIN MEDICATION Q2HRS WITH SLIGHT EFFECT RATES IT A 7 ON REASSESSMENT. REPOSITIONED FREQUENTLY C/O PAIN IN LEFT SHOULDER. NOT OOB THIS SHIFT. CONTINUE TO MONITOR.
[2021-09-23 07:40] VITALS: BP 153/69
--- NOTE | 2021-09-23 11:18 | NUR ---
SW reviewed chart and spoke with nursing and attending physician. 5N is following for possible admission to inpt acute rehab. Awaiting additional therapy notes at this time to determine if will be able to tolerate the required amount of therapy. Pain mgmt is being addressed. MICHAEL met with pt at bedside. Pt states she feels better today. Pt to be medicated prior to working with therapy. SW explained that therapy and input from physicians will make recommendations regarding discharge disposition. MICHAEL explained that insurance auth will be needed for in acute rehab and SNF. MICHAEL informed pt that [facility] is not accepting pts at this time due to staffing. SW is following to assist as needed with discharge planning.
[2021-09-23 16:02] VITALS: BP 135/69
--- NOTE | 2021-09-23 17:48 | NUR ---
ASSUMED PATIENT CARE AT 0700. A/O X4. C/O LEFT SHOULDER PAIN. PAIN MEDS GIVEN NEED. NOT TOWARDS POC.
[2021-09-23 19:19] VITALS: BP 123/45
[2021-09-23 21:03] LABS: URINE BILIRUBIN NEGATIVE (Negative); URINE BLOOD 2+ (Negative); URINE CLARITY CLEAR; URINE COLOR YELLOW; URINE GLUCOSE-RANDOM* NEGATIVE (Negative); URINE KETONES NEGATIVE (Negative); URINE NITRITE-REFLEX NEGATIVE (Negative); URINE PROTEIN (DIPSTICK) NEGATIVE (Negative); URINE SPECIFIC GRAVITY 1.015 (1.005-1.035)
[2021-09-23 21:15] LABS: CASTS None Seen /LPF (None Seen); SQUAMOUS 0-3 Few /LPF (0-3); URINE LEUKOCYTES-REFLEX 1+ (Negative); URINE WBC-REFLEX 6-15 Few /HPF (0-5)
[2021-09-23 21:16] LABS: BACTERIA-REFLEX 1-9 Few /HPF (None Seen); CRYSTALS None Seen /LPF (None Seen); URINE RBC 3-10 Few /HPF (NONE SEEN)
[2021-09-24 03:39] VITALS: BP 120/53
--- NOTE | 2021-09-24 06:16 | NUR ---
PROGRESS PT A/O X3 GETS CONFUSED AT TIMES OR MISUNDERSTANDS WHAT YOU TELL HER. SON AT BEDSIDE AT START OF SHIFT TAKING NOTES AND ASKING QUESTIONS. ALL QUESTIONS ANSWERED AND MEDICATION REGIMEN EXPLAINED SON R/V UNDERSTANDING BUT PT STILL CONFUSED AT TIMES. STATED AT ONE POINT SHE WAS CALLING FOR HOURS FOR MEDICATION BUT HAD MEDICATION GIVEN DURING THAT TIME FRAME. HAD A TEMP OF 99.4 AND 325 MG TYLENOL GIVEN WITH OXYCODONE WITH EFFECT. DISCUSSED ANESTHESIA AND PNEUMONIA RISK, ENCOURAGED INDEPENDENT ISP USE PULLING 500 MLS. TEMP 98.6 ON RECHECK. REPOSITIONED FREQUENTLY, HEATING PAD TO LEFT ARM AND SHOULDER. PAIN DIFFICULT TO CONTROL. CONTINUE TO MONITOR.
[2021-09-24 06:39] LABS: HEMATOCRIT 32.4 % (37.0-47.0); HEMOGLOBIN 10.5 gm/dL (12.0-15.0); MCH 29.3 pg (26.0-34.0); MCHC 32.4 g/dL (28.0-37.0); MCV 90.5 fL (80.0-100.0); RBC 3.58 mil/uL (4.20-5.00); RDW 14.6 % (10.5-14.5)
[2021-09-24 06:59] LABS: CALCIUM 9.2 mg/dL (8.5-10.1); CREATININE 0.6 mg/dL (0.6-1.0); POTASSIUM 4.1 mmol/L (3.5-5.1)
[2021-09-24 07:47] VITALS: BP 133/53
[2021-09-24 15:11] VITALS: BP 145/51
--- NOTE | 2021-09-24 15:38 | NUR ---
MICHAEL reviewed chart and spoke with nursing and attending physician. Pt is on IV abx. Pt had CT of cervical spine earlier today. Pt with continued left shoulder pain. No weekend discharge planned. MICHAEL discussed case with rehabilitation assistant. Pt has been unable to work with therapy due to pain. Pt to be seen by therapy over the weekend. will submit for insurance auth on Monday, if pt meets admission criteria for . MICHAEL is following to assist as needed with discharge planning.
--- NOTE | 2021-09-24 18:08 | NUR ---
ASSUMED PATIENT CARE AT 0700. A/O X4. NO CHANGE ON THIS SHIFT. SLOWLY TOWARDS POC GOALS.
[2021-09-24 19:07] VITALS: BP 142/60
[2021-09-24 22:28] VITALS: BP 142/60
--- NOTE | 2021-09-24 23:18 | NUR ---
pt has been staying in a reclined postion in bed most of the time. fever tonight 101.6 max. spoke with retirement consultant provider. orders for blood cultures and chest xray done. repostioned pt, she is unwilling to turn side to side. she has pain to her left shoulder. she goes from back to rt side. she will not allow bed to be rolled up to above 15 or 20 degrees.
[2021-09-25 04:39] VITALS: BP 147/53
[2021-09-25 07:21] VITALS: BP 146/60
[2021-09-25 15:06] VITALS: BP 136/71
--- NOTE | 2021-09-25 18:56 | NUR ---
PT A&OX4 THIS SHIFT. PT ASKS QUESTIONS APPROPRIATELY, REQUESTS PAIN AND ANXIETY MEDICATION REGULARLY. PT FAMILY IN ROOM DURING DAY SHIFT. PT NEEDS ENCOURAGEMENT TO MOVE AND HAS FREQUENTLY REFUSED TO MOVE DURING OFFERING.
[2021-09-25 20:19] VITALS: BP 149/68
[2021-09-26 03:51] VITALS: BP 147/68
--- NOTE | 2021-09-26 05:25 | NUR ---
swelling to rt arm slightly increased tonight. it has been swollen, but it is more bothersome to her. she wants her lasix pill. I told her we need to ask her doctor today. wrapped a heated blanket around her rt arm for comfort. she refuses to turn onto her left side. she is constantly laying on her right arm.
[2021-09-26 07:47] VITALS: BP 130/70
--- NOTE | 2021-09-26 15:01 | NUR ---
TOOK OVER CARE OF PATIENT AT 1200. REPORT WAS RECEIVED BY PREVIOUS NURSE AT THE BEDSIDE. FAMILY MEMBER PRESENT IN ROOM AT THIS TIME. PATIENT COMPLAINT OF NECK PAIN AND MUSCLE SPASMING; ADMINISTERED PRN MUSCLE RELAXER. PATIENT COMPLAINT OF ANXIETY ASSOCIATED WITH UPCOMING CERVICAL XRAY; PRN ANXIETY MEDICATION ADMIN. PATIENT TAKEN FOR CERVICAL XRAY THIS AFTERNOON BUT UNABLE TO TOLERATE PROCEDURE. WILL INFORM PROVIDER. WILL CONTINUE TO MONITOR.
[2021-09-26 16:17] VITALS: BP 138/59
--- NOTE | 2021-09-26 18:03 | NUR ---
ARTERIAL US RIGHT UPPER ARM COMPLETED. RADIOLOGY REPORT IN CHART. INFORMED DR. BUSTAMANTE REGARDING RESULTS; NEW ORDERS FOR ENOXAPARIN IN EMAR.
[2021-09-26 19:07] VITALS: BP 129/60
[2021-09-27 04:12] VITALS: BP 137/61
--- NOTE | 2021-09-27 07:31 | NUR ---
progress pt a/o x3 but confused at times pain better contolled. but pt very anxious about dvt's in right arm. lovenox ordered first dose given last night. educated pt and family about medication and effects and side effects. both r/v understanding. nielsen in place repositioned as needed. encouraged isp use for temp of 101.5 pulls only 500 ml's but temp resolved with 5 mg hydrocodone and 325 mg of tylenol. continue poc.
[2021-09-27 07:33] VITALS: BP 130/70
[2021-09-27 16:38] VITALS: BP 122/55
--- NOTE | 2021-09-27 16:59 | NUR ---
SW reviewed chart and spoke with nursing and attending physician. Ortho consulted due to left shoulder pain. 5N is following pt for admission to in acute rehab pending insurance authorization if pt is appropriate for admission. SW is following to assist as needed with discharge planning.
--- NOTE | 2021-09-27 18:21 | NUR ---
ASSUMED PATIENT CARE AT 0700. A/O X4. UP CHAIR FOR 4 HOURS. PAIN MEDS GIVEN NEEDS. RIGHT ARM ELEVATED. SLOWLY TOWARDS POC GOALS.
[2021-09-27 19:50] VITALS: BP 114/55
--- NOTE | 2021-09-28 04:09 | NUR ---
PT ALERT & ORIENTED X 4. MULTIPLE C/O OF PAIN OVERNIGHT. EXPERIENCING PAIN ON HER BACK AND UPPER EXTREMITIES. ADMINISTERED PAIN MEDS PRN. FREQUENT TURNS/REPOSITIONING Q2 OR WHEN PT PROMPTS. FEMI DUGAN DD. CURRENTLY ON RA. SR ON TELE. WILL CONTINUE TO MONITOR.
[2021-09-28 05:10] VITALS: BP 142/72
[2021-09-28 07:04] VITALS: BP 121/50
--- NOTE | 2021-09-28 10:25 | NUR ---
Nutrition: REC bowel regimen as pt reports no BM x 3-4 days.
--- NOTE | 2021-09-28 14:54 | NUR ---
SW reviewed chart and spoke with nursing and attending physician. SW discussed case with 5N cardiac rehab nurse. 5N will submit for insurance auth if pt is able to tolerate the amount of therapy needed for 5N. Pt's BP becomes elevated with therapy. Pt still having severe pain in left shoulder. SW received voice message from pt's dtr, Becky, requesting to speak with SW regarding the plan of care. SW met with pt and Becky at bedside. Pt's dtr is concerned about pt's BP becoming elevated with activity. Pt to have IV pain meds prior to therapy. Pt's dtr is adamant about pt not going to a SNF for rehab. Pt and dtr both state that their preference is 5N v. home with HH. PRovided HH list to pt's dtr for review. Informed both pt and dtr that [facility] is currently not accepting pts due to staffing. Pt and dtr are hoping for 5N. SW explained admission criteria and need for insurance authorization. Both verbalized understanding. SW is following to assist as needed with discharge planning.
[2021-09-28 15:14] VITALS: BP 121/50
[2021-09-28 15:17] VITALS: BP 133/59
--- NOTE | 2021-09-28 18:21 | NUR ---
ASSUMED PATIENT CARE AT 0700. A/O X4. NOTED BP ELEVATED TO 200 WHEN PT AND OT WORK WITH PATIENT. ALSO HR ELEVALTED WITH NECK PAIN. DR STEINER NOTIFIED. NOT TOWARDS POC GOALS.
[2021-09-28 19:20] VITALS: BP 134/52
[2021-09-29 04:07] VITALS: BP 122/62
--- NOTE | 2021-09-29 04:35 | NUR ---
Pt. medicated for pain per her request with some relief. Repositioned prn for comfort. Arms elevated wth pillows to help decrease swelling. Sleep med given per her request and stated she slept some. Using heating pad on left arm/shoulder area. Pt. forgetful at times and needs reminder.
[2021-09-29 07:01] VITALS: BP 133/66
--- NOTE | 2021-09-29 13:22 | NUR ---
SW reviewed chart and spoke with nursing and attending physician. Pt is slowly progressing towards goals for discharge. Pt's pain is being monitored. Pt has been unable to work with therapy enough to see if pt has the tolerance to be accepted to 5N. 5N will submit for insurance authorization it pt is appropriate for admission. Pt and family do not want pt to discharge to a SNF. Pt will have 24 hour care and family support at home. Pt and family are agreeable with services. MICHAEL is following to assist as needed with discharge planning.
[2021-09-29 14:26] LABS: HEMATOCRIT 32.3 % (37.0-47.0); HEMOGLOBIN 10.6 gm/dL (12.0-15.0); MCH 29.4 pg (26.0-34.0); MCHC 32.9 g/dL (28.0-37.0); MCV 89.2 fL (80.0-100.0); RBC 3.62 mil/uL (4.20-5.00); RDW 14.3 % (10.5-14.5); WBC 6.6 thou/uL (4.0-11.0)
[2021-09-29 14:35] LABS: CALCIUM 9.2 mg/dL (8.5-10.1); CREATININE 0.8 mg/dL (0.6-1.0); POTASSIUM 4.3 mmol/L (3.5-5.1)
[2021-09-29 15:10] VITALS: BP 125/59
[2021-09-29 19:26] VITALS: BP 128/54
--- NOTE | 2021-09-29 19:55 | NUR ---
RN ASSUMED PT'S CARE AT 0700-1900PM, PT IS A&OX4, PT IS CONTINUING PAIN MANAGEMENT , RN HAS REPORTED DR ABOUT PT REFUSED PT/OT TODAY, PT DENIES SOB AND N/V AT DAY SHIFT.
[2021-09-30 04:19] VITALS: BP 125/65
--- NOTE | 2021-09-30 04:37 | NUR ---
PT ALERT & ORIENTED X 4. HAS ANXIETY ABOUT STARTING PT. CURRENTLY ON RA. DENIES ANY SOB. PT C/O OF PAIN ON UPPER EXTREMITIES AND BACK. ADMINISTERED PAIN MEDS PRN AND REPOSITIONED. SR ON TELE. WILL CONTINUE TO MONITOR.
[2021-09-30 09:08] VITALS: BP 133/61
--- NOTE | 2021-09-30 09:29 | 2DMMODE ---
[facility] [address] [place] [address] 2 D/M-MODE ECHOCARDIOGRAM Name: TEA FAUST V Room #: 360-P ADM IN M.R.#: [id number] Admission: 09/13/21 Attend Phys: Patrick Castro, Discharge: Date of : 50 Report #: [id number] THIS REPORT FOR: cc: FAM - Family physician unknown FAM - Family physician unknown Moise Boles MD ~ APPROVED REPORT Study performed: 09/30/2021 09:06:13 EXAM: Limited 2D, Doppler, and color-flow Echocardiogram Patient Location: Bedside Room #: 360 Status: routine BSA: 2.17 HR: 97 bpm BP: 125/65 mmHg Rhythm: NSR Other Information Study Quality: Adequate Technically limited study due to morbid obesity. Indications Limited echo for SOB. (Complete echo done 08/31/21). Hx: COPD, diastolic HF, COVID-19 in 2019. Aortic Valve AoV Peak Reggie.: 2.41 m/s AO Peak Gr.: 23.25 mmHg AO Mean Gr.: 11.29 mmHg AO V2 Mean: 1.56 m/s AO V2 VTI: 39.18 cm Mitral Valve E/A Ratio: 0.7 MV Decel. Time: 187.92 ms MV E Max Reggie.: 0.68 m/s MV A Reggie.: 0.95 m/s MV PHT: 54.50 ms Tricuspid Valve TR Peak Reggie.: 3.34 m/s RAP Estimate: 5.00 mmHg [facility] [address] [place] [address] 2 D/M-MODE ECHOCARDIOGRAM Name: TEA FAUST V Room #: 360-P ADM IN M.R.#: [id number] Admission: 09/13/21 Attend Phys: Patrick Small Discharge: Date of : 50 Report #: [id number] Peak Gr.: 45.00 mmHg PA Pressure: 50.00 mmHg Left Ventricle The left ventricle is normal size. There is normal LV segmental wall motion. Mild concentric left ventricular hypertrophy. Left ventricular systolic function is normal. LVEF is 60-65%. Mild diastolic dysfunction is present (impaired relaxation pattern). Right Ventricle The right ventricle is normal size. The right ventricular systolic function is normal. Atria The left atrium size is normal. The right atrium size is normal. Aortic Valve Aortic valve is calcified. Trace aortic regurgitation. Mild aortic stenosis. (SHARDA 1.6cm, PPG 23mmHg, MPG 11mmHg). Mitral Valve The mitral valve is normal in structure. Mild mitral annular calcification. There is no mitral valve regurgitation noted. No evidence of mitral valve stenosis. Tricuspid Valve The tricuspid valve is normal in structure. Trace tricuspid regurgitation. Estimated PAP is 50mmHg. Pulmonic Valve Pulmonic valve is not well visualized. Great Vessels The aortic root is normal in size. IVC is normal in size and collapses >50% with inspiration. Pericardium There is no pericardial effusion. <Conclusion> The left ventricle is normal size. Mild concentric left ventricular hypertrophy. There is normal LV segmental wall motion. LVEF is 60-65%. [facility] [address] [place] [address] 2 D/M-MODE ECHOCARDIOGRAM Name: TEA FAUST V Room #: 360-P [facility].#: [id number] Admission: 09/13/21 Attend Phys: Patrick Small Discharge: Date of : 50 Report #: [id number] The right ventricle is normal size. The left atrium size is normal. Aortic valve is calcified. Trace aortic regurgitation. Mild aortic stenosis. (SHARDA 1.6cm, PPG 23mmHg, MPG 11mmHg). The mitral valve is normal in structure. Mild mitral annular calcification. The tricuspid valve is normal in structure. Trace tricuspid regurgitation. Estimated PAP is 50mmHg. Pulmonic valve is not well visualized. There is no pericardial effusion. The aortic root is normal in size. <ELECTRONICALLY SIGNED> By: Moise Boles MD 09/30/21928 8 8 Moise Boles MD /INF
[2021-09-30 12:03] VITALS: BP 140/100
[2021-09-30 13:07] VITALS: BP 141/61
[2021-09-30 14:00] VITALS: BP 144/72
--- NOTE | 2021-09-30 14:18 | NUR ---
SW reviewed chart and spoke with nursing and attending physician. Pain mgmt consulted today. SW received call from pt's niece, Angela, to discuss the plan of care and discharge options. MICHAEL met with pt and three family members at the bedside to discuss plan. Pt and family are only agreeable with 5N or going home with HH services. Pt and family are NOT agreeable with considering SNF placement. SW explained admission criteria for 5N and need for insurance authorization. Pt's family verbalized understanding. SW explained HH services and frequency of visit. Pt's family states that pt will have 24 hour family support. Awaiting input from pain mgmt at this time. Will continue to review therapy notes. SW updated nursing and attending physician. Pt's nurse to discuss visitor policy with pt and family. MICHAEL is following to assist as needed with discharge planning.
[2021-09-30 19:33] VITALS: BP 148/63
--- NOTE | 2021-09-30 19:39 | NUR ---
RN ASSUMED PT'S CARE AT 0700-1900PM, PT IS A&OX4, PT'S VS ARE STABLE, PT IS CONTINUING PAIN MANAGEMENT, PT GETS UP TO SIT BEDSIDE WITH PT TODAY,PT'S VS ARE STABLE AT DAY SHIFT.
[2021-10-01 04:46] VITALS: BP 134/65
--- NOTE | 2021-10-01 07:10 | NUR ---
PROGRESS PT PROGRESSING PAIN CONTROL MUCH BETTER, SCHEDULED DOSE OF OXYCODONE GIVEN X 1 WITH EFFECT PT SLEPT THROUGHOUT NIGHT. HAD ONE DOSE OF MOM TRIED TO HAVE A BM WITHOUT SUCCESS TO CONTINUE MIRALAX. KAHN INTACT. ON ROOM AIR DRSG C/D/I. CONTINUE POC.
[2021-10-01 08:19] VITALS: BP 149/82
--- NOTE | 2021-10-01 14:02 | NUR ---
SW received voice message from pt's dtr requesting SW to visit with pt and family today. SW reviewed chart and spoke with nursing and attending physician. No weekend discharge planned. Pain mgmt consult completed yesterday. [facility] is following for possible admission to inpt acute rehab. Will need insurance authorization. SW met with pt at bedside. Pt's family was not present. Pt continues to state that she is agreeable with going to 5N, but will not consider SNF placement. Pt would be agreeable with HH. SW to follow up with pt and family later today to discuss discharge planning.
[2021-10-01 15:55] VITALS: BP 158/85
--- NOTE | 2021-10-01 18:31 | NUR ---
RN ASSUMED PT'S CARE AT 0700AM, PT IS A&OX4, PT IS CONTINUING PAIN MANAGEMENT , PT GETS UP TO BEDSIDE WITH PT/OT TODAY, PT'S VS ARE STABLE, RN HAS REPORTED TO DR GUEVARA ABOUT PT'S NECK SURGICAL INCISION HAS LIGHT YELLOW DRIANGE ,RN HAS CHANGED NEW DRESSING , PT STARTS NEW PO ABX AT 1700PM, PT IS RELAXING NOW, PT'S FAMILY STAY AT PT'S BEDSIDE .
[2021-10-01 19:58] VITALS: BP 129/79
[2021-10-01 20:38] LABS: ABSOLUTE NEUTROPHILS 7.1 thou/uL (1.4-8.2); BASOPHILS 0.8 % (0.0-2.0); EOSINOPHILS 0.5 % (0.0-3.0); HEMATOCRIT 35.9 % (37.0-47.0); HEMOGLOBIN 11.7 gm/dL (12.0-15.0); LYMPHOCYTES 17.6 % (24.0-44.0); MCH 29.1 pg (26.0-34.0); MCHC 32.7 g/dL (28.0-37.0); MONOCYTES 8.4 % (1.0-8.0); PLATELET COUNT 400 thou/uL (150-400); POLYS 72.7 % (36.0-66.0); RBC 4.03 mil/uL (4.20-5.00); RDW 14.6 % (10.5-14.5); WBC 9.8 thou/uL (4.0-11.0)
[2021-10-01 20:49] LABS: MAGNESIUM 1.9 mg/dL (1.8-2.4)
[2021-10-01 22:22] LABS: URINE BILIRUBIN NEGATIVE (Negative); URINE BLOOD 2+ (Negative); URINE CLARITY CLEAR; URINE COLOR YELLOW; URINE GLUCOSE-RANDOM* NEGATIVE (Negative); URINE KETONES TRACE (Negative); URINE LEUKOCYTES-REFLEX TRACE (Negative); URINE NITRITE-REFLEX NEGATIVE (Negative); URINE PROTEIN (DIPSTICK) NEGATIVE (Negative); URINE UROBILINOGEN 0.2 E.U./dl (0.2-1.0)
[2021-10-01 22:44] LABS: BACTERIA-REFLEX 1-9 Few /HPF (None Seen); CRYSTALS None Seen /LPF (None Seen); HYALINE CASTS 4-10 Moderate /LPF (None Seen); MUCUS 4-6 Moderate strn/LPF (None Seen); SQUAMOUS 4-10 Moderate /LPF (0-3); TRANSITIONAL EPITHEL CELL 4-10 Moderate /LPF (None Seen); URINE RBC >20 Many /HPF (NONE SEEN)
--- NOTE | 2021-10-02 00:30 | NUR ---
PT WITH FAMILY IN ROOM AT THE START OF SHIFT. PT APPEARS COMFORTABLE. GENERALISED PAIN-OXY GIVEN
[2021-10-02 05:49] VITALS: BP 148/72
[2021-10-02 06:06] LABS: ABSOLUTE NEUTROPHILS 6.6 thou/uL (1.4-8.2); EOSINOPHILS 0.8 % (0.0-3.0); HEMATOCRIT 35.1 % (37.0-47.0); HEMOGLOBIN 11.5 gm/dL (12.0-15.0); LYMPHOCYTES 25.9 % (24.0-44.0); MCH 29.3 pg (26.0-34.0); MCHC 32.6 g/dL (28.0-37.0); MCV 89.8 fL (80.0-100.0); MONOCYTES 10.6 % (1.0-8.0); POLYS 61.7 % (36.0-66.0); RBC 3.91 mil/uL (4.20-5.00); RDW 14.3 % (10.5-14.5); WBC 11.9 thou/uL (4.0-11.0)
[2021-10-02 06:10] LABS: PLATELET COUNT 322 thou/uL (150-400)
[2021-10-02 06:41] LABS: CREATININE 0.8 mg/dL (0.6-1.0); MAGNESIUM 2.1 mg/dL (1.8-2.4); POTASSIUM 5.2 mmol/L (3.5-5.1)
[2021-10-02 07:17] VITALS: BP 151/82
[2021-10-02 15:13] VITALS: BP 131/78; BP 161/59
--- NOTE | 2021-10-02 18:47 | NUR ---
ASSUMED PATIENT CARE AT 0700. A/O X4. NECK INCISION DRESSING CHANGED WITH AQUACEL. LEAKING FLUID NOTED. VSS. WORK WITH PT/OT. SLOWLY TOWARDS POC GOALS.
[2021-10-02 20:00] VITALS: BP 150/73
[2021-10-03 03:58] VITALS: BP 137/51
--- NOTE | 2021-10-03 06:12 | NUR ---
PROGRESS PAIN MUCH BETTER CONTROLLED WITH SCHEDULED OXYCODONE PT SLEPT MOST OF SHIFT. VSS AFEBILE. REPOSITIONED NEEDED. PT TRIED TO HAVE A BM BUT JUST PASSED GAS. KAHN INTACT DRAINING CLEAR YELLOW URINE. CERVICAL NECK INCISION COVERED WITH DRESSING THAT REMAINS C/D/I. TELEMETRY INTACT READING SR. CONTINUE POC.
[2021-10-03 07:25] VITALS: BP 120/85
--- NOTE | 2021-10-03 09:18 | NUR ---
VERBAL REPORT RECIEVED PT PT AO4, ROOM AIR, BREATHING REGULARLY, NOT RT HAND EDEMA, C/O OF NECK AND SHOULDER PAIN, NECK BRACE AT BEDSIDE, OXYCODONE GIVEN AT A STANDING MED, ABLE O MAKE NEEDS KNOW, KAHN IN PLACE, EATING BREAKFAST.
[2021-10-03 15:22] VITALS: BP 113/61
[2021-10-03 19:07] VITALS: BP 121/90
[2021-10-03 19:14] VITALS: BP 113/65
--- NOTE | 2021-10-04 01:39 | NUR ---
PROGRESS PT A/O X4 A LITTLE FORGETFUL, AND ANXIOUS. SLIGHT TEMP OF 100.3 NOTED AND TYLENOL GIVEN WITH EFFECT. PT RATING PAIN A 5 TO 8 AND PAIN MANAGED WITH SCEDULED OXYCODONE AND GABAPENTIN. REPOSITIONED FREQUENTLY. KAHN CATHETER IN PLACE DRAINING ADEQAUE AMOUNTS OF CLEAR YELLOW URINE. DRESSING TO CERVICAL SPINE C/D/I. RIGHT ARM STILL EDEMATOUS BUT SLOWLY IMPROVING. PLAN IS TO DC TO [address] [place] [address] FOR REHAB WHEN MEDICALLY STABLE.
[2021-10-04 03:49] LABS: CALCIUM 9.4 mg/dL (8.5-10.1); CREATININE 1.3 mg/dL (0.6-1.0); POTASSIUM 4.1 mmol/L (3.5-5.1)
[2021-10-04 03:50] VITALS: BP 115/84
[2021-10-04 07:13] VITALS: BP 113/52
--- NOTE | 2021-10-04 15:02 | NUR ---
SW reviewed chart and spoke with nursing and attending physician. Case discussed with 5N. 5N to submit for insurance auth today pending therapy notes. Awaiting input from restorative rehab aide at this time. Pt and family are adamant about pt returning home with HH if not accepted to . MICHAEL is following to assist as needed with discharge planning.
[2021-10-04 15:16] VITALS: BP 119/52
--- NOTE | 2021-10-04 15:28 | NUR ---
AUTHORIZATION REQUESTED THIS DATE FROM PATIENT'S INSURANCE. WILL AWAIT RESPONSE. INCUBATOR OPERATOR INFORMED.
[2021-10-04 19:37] VITALS: BP 134/85
[2021-10-05 04:25] VITALS: BP 119/46
--- NOTE | 2021-10-05 05:08 | NUR ---
PROGRESS PT A/O X4, UP TO CHAIR WITH PT X 3 HOURS TODAY. PT IN BED GETTING A BED BATH BY HER DAUGHTER. REPOSITIONED NEED. RIGHT ARM STILL EDEMATOUS AND PAINFUL, RATING IT AN 8 AND GIVEN SCHEDULED OXYCODONE WITH EFFECT PT SLEPT AFTER. TELEMETRY INTACT READING SR/ST WITH RATES IN THE 90'S. LUNGS CLEAR AND SATS IN MID 90'S ON ROOM AIR. AFEBRILE. POOR PO INTAKE AND NS 500 CC'S/OVER 6 HOURS INFUSED ORDERED. KAHN IN PLACE DRAINING ADEQUATE AMOUNT OF CLEAR YELLOW URINE. PLAN TO DC TO REHAB WHEN INSURANCE APPROVED.
[2021-10-05 05:37] LABS: CALCIUM 9.3 mg/dL (8.5-10.1); CREATININE 0.9 mg/dL (0.6-1.0); POTASSIUM 4.2 mmol/L (3.5-5.1)
[2021-10-05 07:13] VITALS: BP 114/62
--- NOTE | 2021-10-05 11:08 | NUR ---
SW reviewed chart and spoke with nursing and attending physician. 5N submitted for insurance auth yesterday. Awaiting input at this time. MICHAEL is following to assist as needed with discharge planning.
[2021-10-05 15:15] VITALS: BP 113/38
[2021-10-05 17:30] LABS: URINE BILIRUBIN 1+ (Negative); URINE BLOOD 3+ (Negative); URINE CLARITY CLOUDY; URINE COLOR YELLOW; URINE GLUCOSE-RANDOM* NEGATIVE (Negative); URINE KETONES NEGATIVE (Negative); URINE LEUKOCYTES-REFLEX TRACE (Negative); URINE NITRITE-REFLEX NEGATIVE (Negative); URINE PROTEIN (DIPSTICK) TRACE (Negative); URINE SPECIFIC GRAVITY 1.015 (1.005-1.035)
[2021-10-05 17:34] LABS: ICTOTEST (BILI CONFIRMATORY) Negative (Negative)
[2021-10-05 17:46] LABS: CASTS None Seen /LPF (None Seen); SQUAMOUS 0-3 Few /LPF (0-3)
[2021-10-05 17:47] LABS: BACTERIA-REFLEX 1-9 Few /HPF (None Seen); URINE RBC >20 Many /HPF (NONE SEEN); URINE WBC-REFLEX 0-5 Rare /HPF (0-5)
[2021-10-05 17:48] LABS: CRYSTALS None Seen /LPF (None Seen)
[2021-10-05 19:07] VITALS: BP 120/41
[2021-10-06 04:12] VITALS: BP 124/61
--- NOTE | 2021-10-06 04:19 | NUR ---
PT ALERT & ORIENTED X 4. PT IS NPO AT MIDNIGHT FOR LUMBAR PUNCTURE LATER TODAY. PT VOICED THAT SHE IS ANXIOUS ABOUT PROCEDURE. THIS RN ANSWERED QUESTIONS TO THE BEST OF HER ABILITY AND REASSURED PT USING THERAPEUTIC COMMUNICATION. SR ON TELE MONITOR. VSS FEBRILE. ADMINISTERED TYLENOL PRN. PT'S DAUGHTER CALLED AND REQUESTED UPDATE ON PT'S VITALS. UPDATED PER REQUEST. KAHN TO NIKKO. IV ABX ADMINISTERED. WILL CONTINUE TO MONITOR.
[2021-10-06 06:03] LABS: HEMOGLOBIN 10.4 gm/dL (12.0-15.0); MCHC 32.4 g/dL (28.0-37.0); MCV 89.5 fL (80.0-100.0); RBC 3.58 mil/uL (4.20-5.00); RDW 14.9 % (10.5-14.5); WBC 5.8 thou/uL (4.0-11.0)
[2021-10-06 06:16] LABS: INR 1.2
[2021-10-06 06:20] LABS: ALBUMIN 2.1 g/dL (3.4-5.0); CALCIUM 9.2 mg/dL (8.5-10.1); CREATININE 0.9 mg/dL (0.6-1.0); MAGNESIUM 1.9 mg/dL (1.8-2.4); POTASSIUM 4.3 mmol/L (3.5-5.1); TOTAL BILIRUBIN 0.6 mg/dL (0.2-1.0); TOTAL PROTEIN 6.3 g/dL (6.4-8.2)
[2021-10-06 07:20] VITALS: BP 136/55
--- NOTE | 2021-10-06 12:30 | NUR ---
AUTHORIZATION FOR ACUTE REHAB STAY RECIEVED THIS DATE. AUTH NUMER [id number]. AUTHORIZED FROM 10/05/21 WITH REVIEW DATE ON 10/11/21. FAX REVIEW TO [phone]. PHONE [phone]. (PER AUDI) PATIENT NOW NOT READY TO COME TO REHAB THIS DATE DUE TO COMPLICATIONS. [facility] CONTACTED AND INFORMED PATIENT NOT READY TO COME THIS DATE. LAST DATE THAT PATIENT CAN COME TO /ACUTE REHAB WILL BE ON 10/11/21. CALL TO UPDATE INSURANCE ON DATE OF ADMIT. UPDATE WILL BE DUE ON 10/11 NO MATTER WHAT DATE ADMITTED UNLESS INSTRUCTED OTHERWISE BY INSURANCE. (PER ELIZA 2 REF #[id number])
--- NOTE | 2021-10-06 14:53 | NUR ---
MICHAEL reviewed chart and spoke with nursing and attending physician. MICHAEL notified that insurance has provided authorization for admission to 5N. MICHAEL met with pt's son at the bedside to provide update. Pt currently off the unit having a CT scan. Pt with fevers and may possibly need an LP. Authorization for admission to 5N is good through Monday, 10/11. Pt's son states that they are agreeable with plan for pt to go to 5N. MICHAEL updated attending physician. MICHAEL is following to assist as needed with discharge planning.
--- NOTE | 2021-10-06 15:58 | NUR ---
VAT CONSULTED FOR PIV. PIV PLACED LAST WEEK NOW LEAKING AND PT HAS PAIN TO FOREARM. VANCOMYCIN 5:1 CONCENTRATION ADDED TODAY. NO OTHER VESSELS VISUALIZED IN LEFT FOREARM FOR PIV CANNULATION. HAND VESSELS HAVE BEEN USED FOR PHLEBOTOMY AND ARE SORE TO TOUCH. ONLY VESSEL VISUALIZED IN LEFT UPPER ARM IS BRACHIAL VEIN. SINCE PT ALREADY HAS DVT RIGHT ARM, EXTENDING INTO SUBCLAVIAN, PT WILL BE AT HIGH RISK FOR DVT ON LEFT SIDE. RECOMMEND CVL BY VAT, IF LEFT ARM AND CENTRAL VESSELS FREE FROM THROMBUS, OTHERWISE, PT SHOULD GO TO IR.
[2021-10-06 16:10] VITALS: BP 149/58
--- NOTE | 2021-10-06 18:41 | NUR ---
RN ASSUMED PT'S CARE AT 0700AM, PT IS A&OX4, PT IS CONTINUING IV ABX AND PAIN /ANXIETY ,WOUND CARE , PT'S VS ARE STABLE, RN REPORTS TO DR ABOUT PT'S LUE EDEMA AND PT'S L IV ACCESS IS WORKING, NEW ORDER, STAT US LUE HAS DONE, RN HAS CALLED DR FOR ABNORMAL US LUE RESULT.
[2021-10-06 20:02] VITALS: BP 133/89
[2021-10-07 04:18] VITALS: BP 153/80
[2021-10-07 06:00] LABS: HEMATOCRIT 29.9 % (37.0-47.0); HEMOGLOBIN 9.7 gm/dL (12.0-15.0); MCH 29.2 pg (26.0-34.0); MCHC 32.6 g/dL (28.0-37.0); MCV 89.7 fL (80.0-100.0); RBC 3.33 mil/uL (4.20-5.00); RDW 14.9 % (10.5-14.5); WBC 7.5 thou/uL (4.0-11.0)
[2021-10-07 06:09] LABS: CREATININE 0.7 mg/dL (0.6-1.0); MAGNESIUM 1.9 mg/dL (1.8-2.4); POTASSIUM 3.8 mmol/L (3.5-5.1)
[2021-10-07 07:24] VITALS: BP 141/70
[2021-10-07 16:13] VITALS: BP 134/75
[2021-10-07 19:36] VITALS: BP 117/72
[2021-10-08] VITALS (8 sets, daily range): BP systolic 114–164; BP diastolic 52–80
--- NOTE | 2021-10-08 01:11 | NUR ---
UPON SHIFT REPORT, PT DAUGHTER AT BEDSIDE, PT REPORTS FEELING 'WHOOZY' WITH 6/10 NECK PAIN, DENYING SOB WHILE ON ROOM AIR, ICE PACK MAINTAINED TO RUE, PT REQUESTING TO BE REPOSITIONED. PT REPOSITIONED WITH X2 ASSIST. SHORTLY THEREAFTER, CONDUCTED SHIFT ASSESSMENT, PT REPORTING 6-7/10 LEFT NECK PAIN. PAIN NOTED TO WORSEN WITH MOVEMENT AND REPOSITIONING. PT RECEIVING PRN PO OXYCODONE Q4HR WITH PRN PO FLEXERIL Q8HR AND PRN PO APAP Q4HR AVAILABLE. PT CONTINUES TO DENY SOB WHILE ON ROOM AIR. PT TOLERATING PO INTAKE OF FLUIDS AND REGULAR DIET WITHOUT ISSUE. PT WITHOUT NAUSEA OR EMESIS. PT VOIDING PER KAHN CATHETER, CATHETER PATENT WITH SECUREMENT DEVICE IN PLACE, YELLOW URINE NOTED. PT RESTING IN BED THROUGHOUT SHIFT,FREQUENT REPOSITIONING ENCOURAGED. PT INTERMITTENT REFUSING REPOSITIONING ASSISTANCE DUE TO COMFORT PREFERENCES AND EXACERBATION OF PAIN WITH MOVEMENT AND REPOSITIONING. PT REPORTS INTERMITTENT NUMBNESS IN BOTH HANDS. CAPILLARY REFILL LESS THAN 3SEC, RADIAL PULSES FAINT, PEDAL PULSES PALPABLE. NONPITTING EDEMA NOTED TO RUE. PT ENCOURAGED TO NOTIFY STAFF FOR ALL NEEDS, CALL LIGHT WITHIN REACH, BED ALARM ON, BED LOCKED IN LOWEST POSITION, FREQUENT MONITORING WILL CONTINUE.
[2021-10-08 11:02] LABS: HEMATOCRIT 31.5 % (37.0-47.0); HEMOGLOBIN 9.9 gm/dL (12.0-15.0); MCH 28.1 pg (26.0-34.0); MCHC 31.5 g/dL (28.0-37.0); MCV 89.3 fL (80.0-100.0); RBC 3.53 mil/uL (4.20-5.00); WBC 6.5 thou/uL (4.0-11.0)
[2021-10-08 11:39] LABS: CREATININE 0.6 mg/dL (0.6-1.0); MAGNESIUM 1.7 mg/dL (1.8-2.4); POTASSIUM 3.6 mmol/L (3.5-5.1)
--- NOTE | 2021-10-08 19:46 | NUR ---
RN ASSUMED PT'S CARE AT 0700-1900PM, PT IS A&OX4, PT IS CONTINUING IV ABX AND PAIN MANAGEMENT, PT GETS UP TO CHAIR WITH ASSIST, PT HAS NEW R IJ CENTRAL LINE TODAY, PT'S VS ARE STABLE AT DAY SHIFT, PT MAY DC TO 5N REHAB TOMORROW.
--- NOTE | 2021-10-08 23:38 | NUR ---
PT ALERT ANDORIENTED X4. ANXIOUS. PT C/O LEFT AND NUMBNESS AND CHEST FEELING TIGHT. EKG DONE. NSR. BP MODERATELY ELEVATED. HYDRALAZINE GIVEN FOR BP. ATIVAN GIVEN FOR ANXIETY. NO FURTHER ORDERS FROM COLOR FINISHER. PT RESTING CALM AND QUIET PRESENTLY. BP COMING DOWN SLOWLY. NO FURTHER C/O CHEST TIGHTNESS. PT STATED LEFT HAND FEELING NUMB IS NOT NEW COMES AND GOES. PT REPOSITIONED. BED DOWN CALL LIGHT IN REACH, BED ALARM IS ON. PT REFUSED SLEEPING PILL OR PAIN PILL.
[2021-10-09 00:18] VITALS: BP 159/70
[2021-10-09 03:55] VITALS: BP 152/74
--- NOTE | 2021-10-09 04:45 | NUR ---
PT A&0X4. VSS 98.9 T. BP STILL MODERATELY ELEVATED. DENIED PAIN. REFUSED OXYCODONE. R&L ARMS ARE ON PILLOWS. PT REPOSITIONED. DRESSING INTACT TO NECK. NO BLEEDING NOTED. PROGRESSING SLOWL TOWARDS D/C GOALS. PT TO BE GOING TO [facility] TODAY.
[2021-10-09 04:51] LABS: HEMATOCRIT 31.1 % (37.0-47.0); MCH 28.8 pg (26.0-34.0); MCHC 32.2 g/dL (28.0-37.0); MCV 89.2 fL (80.0-100.0); RBC 3.49 mil/uL (4.20-5.00); RDW 14.9 % (10.5-14.5); WBC 7.6 thou/uL (4.0-11.0)
[2021-10-09 05:06] LABS: CALCIUM 8.8 mg/dL (8.5-10.1); CREATININE 0.6 mg/dL (0.6-1.0); MAGNESIUM 1.8 mg/dL (1.8-2.4); POTASSIUM 3.3 mmol/L (3.5-5.1)
[2021-10-09 07:19] VITALS: BP 144/60
--- NOTE | 2021-10-09 11:39 | HC ---
[facility] [address] [place] [address] CONSULTATION Name: TEA FAUST V Room #: [facility] IN M.R.#: [id number] Admission: 09/13/21 Attend Phys: Patrick Castro, Discharge: Date of : 50 Report #: [id number] THIS REPORT FOR: cc: FAM - Family physician unknown FAM - Family physician unknown Vlad Lindsay MD ~ DATE OF SERVICE: 10/05/2021 INFECTIOUS DISEASE CONSULTATION DATE OF SERVICE: 10/05/2021 REASON FOR CONSULTATION: I was asked to evaluate concerning postoperative fever and encephalopathy. HISTORY OF PRESENT ILLNESS: The patient is a 70-year-old who underwent posterior cervical decompression laminectomy on 09/13/2021. There was a complication of a dural tear requiring lumbar drain for 5 days. She was making a reasonable recovery until the last several days, she has had low-grade fever. She then became more lethargic and asked to evaluate today for further evaluation. Lumbar drain has been removed. She is now 3 weeks postop and has had still some neck pain. Has been on narcotics and gabapentin. Denies any headache, cough, sputum production, nausea, vomiting or diarrhea. She has an indwelling Maki catheter. Denies any rash or decubitus. No pruritus. No abdominal pain or back pain specifically. Most of her discomfort in her neck. She had a small amount of drainage from the incision. REVIEW OF SYSTEMS: A 14-point review of system was negative other than what has been described above. ALLERGIES: MORPHINE AND CODEINE. MEDICATIONS: As noted on her MAR, having been started on vancomycin and meropenem this evening. PAST MEDICAL HISTORY: Hysterectomy, hypertension, abdominal herniorrhaphy, cholecystectomy, chronic back pain, COVID in 06/2020, gastroesophageal reflux, anxiety, previous stroke with right facial weakness, bilateral total knee arthroplasties, colonoscopy. FAMILY HISTORY: Negative for tuberculosis. SOCIAL HISTORY: Nonsmoker, no significant alcohol intake. She is disabled and . PHYSICAL EXAMINATION: [facility] [address] [place] [address] CONSULTATION Name: TEA FAUST V Room #: [address] [place] [address] [place] ..#: [id number] Admission: 09/13/21 Attend Phys: Patrick Castro, Discharge: Date of : 50 Report #: [id number] GENERAL: She is afebrile and hemodynamically stable. She was more alert this evening and oriented. She did have some flickering of her eyes and mild facial twitching during my evaluation. SKIN: Without rash or decubitus. She was morbidly obese. No palpable adenopathy. HEENT: Without scleral icterus or conjunctivitis. Mouth without mucositis. NECK: Supple with posterior incision small amount of serous drainage evident in the upper portion along the skin fold. Minimal surrounding erythema. No definite fluctuance. BACK: Nontender. LUNGS: Clear. HEART: Regular, without murmur, gallop or rub. ABDOMEN: Obese, soft, nontender with no hepatosplenomegaly or mass appreciated. She has an indwelling Maki catheter. The patient was able to roll over in bed on her own. EXTREMITIES: Without clubbing, cyanosis or edema. RECTAL: Exam not performed. NEUROLOGIC: Mood without anxiety or depression. Strength in the upper and lower extremities appeared symmetric. LABORATORY DATA: Reviewed. MICROBIOLOGY: Reviewed. IMAGING: Chest x-ray reviewed. IMPRESSION: Postoperative fever following posterior cervical spine laminectomy on 09/13/2021 with evidence of a dural leak that required lumbar drain for several days. Cause of her fever at this point would include pneumonia versus surgical site infection. With the lumbar drain previously could have complications down in this region. Her encephalopathy is most likely toxic metabolic with narcotics high on the list of causes. Right lower lobe pulmonary infiltrate evident on chest x-ray. She has a right upper extremity DVT and recent urinary tract infection due to Escherichia coli. She has obesity, obstructive sleep apnea and hypertension as other comorbidities. RECOMMENDATION: We will continue IV antibiotic combination therapy while awaiting cultures of blood, urine and sputum. Further identification of the coag-negative staph from her cervical spine drainage is pending. The patient has coag-negative staph growing from her incisional drainage ___ would recommend further imaging of the neck and possibly the lumbar spine for evidence of a loculated fluid collection that may need to be drained. We will defer to [address] [address] CONSULTATION Name: LUIS ANTONIO FAUSTSA Quintanilla Room #: 360-P [facility] IN M.R.#: [id number] Admission: 09/13/21 Attend Phys: Patrick Castro, Discharge: Date of : 50 Report #: [id number] Neurosurgery regarding specific test that they want. Follow serial laboratory studies along with dressings for her cervical incision. <ELECTRONICALLY SIGNED> By: Vlad Lindsay MD 10/09/21 1139 [id number] 0027 Vlad Lindsay MD /nt
[2021-10-09] MEDS ORDERED: ELIQUIS5 MG PO (11:57)
[2021-10-09] MEDS ORDERED: MEROPENEM1 GM IV (11:58)
[2021-10-09] MEDS ORDERED: FLEXERIL PO (11:58)
[2021-10-09] MEDS ORDERED: VANCO 1 GR1 GM/250 M IVPB (11:59)
[2021-10-09] MEDS ORDERED: OXYCODONE-APAP1 TAB PO (12:03)
[2021-10-09] MEDS ORDERED: ARTHRITIS PAIN100 GM TOP (12:03)
[2021-10-09] MEDS ORDERED: AMBIEN 5 MG TABL5 M1 PO (12:07)
[2021-10-09] MEDS ORDERED: LIDOPATCH1 EACH TRANSDERM (12:08)
[2021-10-09 16:54] VITALS: BP 171/76
[2021-10-09 18:00] VITALS: BP 149/80
[2021-10-09 19:14] VITALS: BP 156/67
--- NOTE | 2021-10-09 19:16 | NUR ---
RN ASSUMED PT'S CARE AT 0700-1900PM, PT IS A&OX4, PT IS CONTINUING IV ABX AND PAIN MANAGEMENT, PT HAS WORKED WITH PT/OT TODAY, PT HAS COVID TEST PCR TODAY, IF PT'S COVID RESULT IS NEGATIVE , PT WILL DC TO [facility] REHAB UNIT TODAY,
--- NOTE | 2021-10-09 22:49 | NUR ---
PT ALERT AND ORIENTED X4. ANXIOUS. ATIVAN GIVEN PRIOR TO TRANSFER TO [address] [place] [address]. PAIN PILL GIVEN FOR BACK PAIN. LUNGS SOUND DIMINISHED. UNLABORED ON RA. REPORT GIVEN TO [facility] ON [address] [place] [address]. DRESSING TO NECK IS CLEAN DRY AND INTACT.
== END 2021-10-09 22:31 | DRG 471 ==
LOC: PRE 07:54 → TBA 11:05 → ICU 11:05 → PRE 13:52 → ICU 19:43 → 3W 09-21 15:49
PROVIDERS: Hospitalist; Internal Medicine; Nurse Practitioner; Nurse Practitioner Family; ADMIT Specialist; ATTEND Specialist
DX: M48.02 Spinal stenosis, cervical region (principal); E43 Unspecified severe protein-calorie malnutrition; J96.21 Acute and chronic respiratory failure with hypoxia; A41.9 Sepsis, unspecified organism; G92.9 Unspecified toxic encephalopathy; G97.41 Accidental puncture or laceration of dura during a procedure; Z68.42 Body mass index [BMI] 45.0-49.9, adult; G95.9 Disease of spinal cord, unspecified; I82.C12 Acute embolism and thrombosis of left internal jugular vein; E87.1 Hypo-osmolality and hyponatremia; N39.0 Urinary tract infection, site not specified; I10 Essential (primary) hypertension; G47.33 Obstructive sleep apnea (adult) (pediatric); G89.29 Other chronic pain; M54.9 Dorsalgia, unspecified; K21.9 Gastro-esophageal reflux disease without esophagitis; F41.9 Anxiety disorder, unspecified; Z96.653 Presence of artificial knee joint, bilateral; M53.2X2 Spinal instabilities, cervical region; K59.00 Constipation, unspecified; E66.01 Morbid (severe) obesity due to excess calories; F32.A Depression, unspecified; G47.10 Hypersomnia, unspecified; M54.10 Radiculopathy, site unspecified; R91.8 Other nonspecific abnormal finding of lung field; B96.20 Unspecified Escherichia coli [E. coli] as the cause of diseases classified elsewhere; Z20.822 Contact with and (suspected) exposure to COVID-19; Z90.49 Acquired absence of other specified parts of digestive tract; Z82.49 Family history of ischemic heart disease and other diseases of the circulatory system; Z88.5 Allergy status to narcotic agent; Z79.899 Other long term (current) drug therapy; Z90.710 Acquired absence of both cervix and uterus; Z86.16 Personal history of COVID-19; Z86.73 Personal history of transient ischemic attack (TIA), and cerebral infarction without residual deficits; Z87.440 Personal history of urinary (tract) infections; Y83.8 Other surgical procedures as the cause of abnormal reaction of the patient, or of later complication, without mention of misadventure at the time of the procedure; Y92.89 Other specified places as the place of occurrence of the external cause
CPT/HCPCS: 10078; 10203; 10879; 27000; 50010; 50101; 50402; 50838; 51436; 56525; 56528; 56529; 56532; 57103; 58370; 58371; 58456; 58567; 58709; 58745; 58759; 58985; 59017; 62110; 62900; 70005

== ENCOUNTER 2021-10-09 09:05 | Inpatient (IN) | payer OTHER ==
[~2021-10-09] VITALS: Ht 160 cm; Wt 117.9 kg
[2021-10-09] MEDS ORDERED: ELIQUIS5 MG PO (11:57)
[2021-10-09] MEDS ORDERED: FLEXERIL PO (11:58)
[2021-10-09] MEDS ORDERED: MEROPENEM1 GM IV (11:58)
[2021-10-09] MEDS ORDERED: VANCO 1 GR1 GM/250 M IVPB (11:59)
[2021-10-09] MEDS ORDERED: OXYCODONE-APAP1 TAB PO (12:03)
[2021-10-09] MEDS ORDERED: ARTHRITIS PAIN100 GM TOP (12:03)
[2021-10-09] MEDS ORDERED: AMBIEN 5 MG TABL5 M1 PO (12:07)
[2021-10-09] MEDS ORDERED: LIDOPATCH1 EACH TRANSDERM (12:08)
[2021-10-09 22:58] VITALS: BP 163/65
--- NOTE | 2021-10-10 02:03 | NUR ---
pt arrived to unit approximately 2230 via bed from [facility]. pt alert and oriented x4, appropriate and cooperative. nielsen to dd with yellow urine to bag. dressing to back of head/neck c/d/i. pt denied complaints. pt oriented to room, call light etc. pt presently appears to be sleeping soundly. bed alarm on and call light in reach. will continue to monitor.
[2021-10-10 05:36] LABS: HEMATOCRIT 30.4 % (37.0-47.0); HEMOGLOBIN 9.8 gm/dL (12.0-15.0); MCH 28.9 pg (26.0-34.0); MCHC 32.4 g/dL (28.0-37.0); MCV 89.3 fL (80.0-100.0); RBC 3.4 mil/uL (4.20-5.00); RDW 14.9 % (10.5-14.5)
[2021-10-10 05:49] LABS: CALCIUM 8.7 mg/dL (8.5-10.1); CREATININE 0.5 mg/dL (0.6-1.0); POTASSIUM 3.5 mmol/L (3.5-5.1)
[2021-10-10 07:15] VITALS: BP 160/77
--- NOTE | 2021-10-10 17:06 | NUR ---
ASSUMED C/O PT AT 0700. PT A&OX4. PT IS ANXIOUS WHICH PT STATES IS HER NORMAL. PT STATES PAIN IS 5/10 BEFORE SHE MOVES AROUND. PT R ARM IS VERY EDEMATOUS, ELEVATED ON PILLOWS AT THIS TIME. DR. MCCRAY STATED HE WOULD ORDER SOMETHING FOR HER ARM LIKE BRACE OR SLEEVE. PT. IV ABT GIVEN BY ORDER. PAIN MEDS PRESCRIBED. BP ELEVATED, BP MEDS GIVEN ORDERED.WILL CONTINUE TO MONITOR.
[2021-10-10 19:45] VITALS: BP 151/54
--- NOTE | 2021-10-11 00:15 | NUR ---
PT ALERT AND ORIENTED X 4. RIJ IV INTACT AND PATENT. IV ANTIBIOTICS GIVEN ORDERED. NECK DRESSING C/D/I. KAHN PATENT DRAINING CLEAR YELLOW URINE. PT TAKES MEDS WITH WATER WITHOUT DIFFICULTY. PT C/O PAIN IN HER NECK. OXYCODONE GIVEN ORDERED. RIGHT ARM EDEMA NOTED. ARM ELEVATED ON PILLOWS. BED ALARM ON FOR SAFETY. PT APPEARS TO BE SLEEPING ON HOURLY ROUNDS.
[2021-10-11 05:24] LABS: HEMATOCRIT 30.2 % (37.0-47.0); HEMOGLOBIN 9.7 gm/dL (12.0-15.0); MCH 28.7 pg (26.0-34.0); MCHC 32.1 g/dL (28.0-37.0); MCV 89.3 fL (80.0-100.0); RBC 3.38 mil/uL (4.20-5.00); RDW 14.7 % (10.5-14.5); WBC 6.9 thou/uL (4.0-11.0)
[2021-10-11 06:01] LABS: CALCIUM 8.7 mg/dL (8.5-10.1); CREATININE 0.7 mg/dL (0.6-1.0); MAGNESIUM 1.8 mg/dL (1.8-2.4); POTASSIUM 3.3 mmol/L (3.5-5.1)
[2021-10-11 07:43] VITALS: BP 145/65
--- NOTE | 2021-10-11 08:40 | NUR ---
Chart review. Had cervical decompression surgery,had to lay flat for 5 days post op, prior to acute rehab. She was getting ready to work with OT this am. [facility], Lives at home with her spouse, has home oxygen-[employer]. Possible tyron gto stay with her daughter alyx hayes for support # [phone]. Will cont following as needed for dc needs.
--- NOTE | 2021-10-11 12:15 | NUR ---
PT ALERT AND ORIENTED TIMES FOUR. VSS. PT C/O PAIN AND ANXIETY PRN MEDICATIONS FOR BOTH GIVEN WITH GOOD RELEIF. PT WORKED WELL WITH PT/OT AND IS UP IN THE CHAIR. PT TOLERATES MEDS BUT EATS SMALL PORTIONS OF MEALS. PT SLOWLY PROGRESSING TOWRADS POC GOALS.
[2021-10-11 20:18] VITALS: BP 144/66
--- NOTE | 2021-10-12 02:24 | NUR ---
PT ASSESSMENT COMPLETED AND VSS. MEDS GIVEN ORDERED AND WELL TOLERATED. FALL PRECAUTIONS IN PLACE. SUPPORTIVE DAUGHTER AT BEDSIDE EARLY DURING SHIFT. ASST WITH REPOSITION FOR COMFORT. DRESSING TO NECK DRY AND INTACT. KAHN DRAINING MODERATE AMOUNT OF YELLOW URINE. PRN PAIN MEDICATION HELPFUL. SLEEPING WELL. WILL CONTINUE TO MONITOR FREQUENTLY.
--- NOTE | 2021-10-12 07:08 | EKG ---
[address] [address] ELECTROCARDIOGRAM REPORT Name: TEA FAUST V Room #: 513-P ADM IN M.R.#: [id number] Admission: 10/09/21 Attend Phys: Job Keating MD Discharge: Date of : 50 Report #: [id number] [facility] Test Date: 2021-10-08 Test Time: 21:54:11 Pat Name: TEA FAUST Department: Room: 513 Gender: F Hog Stomach Preparer: [id number] : 1950 Requested By: Job Keating Order Number: [id number] : Luis Florence Measurements Intervals [place] Rate: 93 P: 56 IL: 160 QRS: 32 QRSD: 78 T: 35 QT: 360 QTc: 448 Interpretive Statements Sinus rhythm Compared to ECG 09/19/2021 10:26:39 No significant changes Electronically Signed On 10-12-2021 7:08:18 VIOLIN REPAIRER by Luis Florence [email or web address] <ELECTRONICALLY SIGNED> By: Luis Florence MD, [facility] 10/12/21 0708 [id number] Luis Florence MD, FACC /EPI
[2021-10-12 07:15] VITALS: BP 146/60
--- NOTE | 2021-10-12 11:06 | NUR ---
late entry for 10/10: BM was both incontinent and continent.
--- NOTE | 2021-10-12 11:25 | NUR ---
LATE ENTRY 10/11 STAFF INTERVIEW USUAL PERFORMANCE OF BED MOBILITY AND TRANSFERS: PER REPORT BY VICKIE DAVIS AND VP TRANSPORTATION, AND PER OBSERVATION BY PPS COORDINATOR, PT IS MOD ASSIST WITH AM BED MOBILITY AND TRANSFERS WITH THERAPIST, BUT BY MID-MORNING AND THROUGHOUT THE REST OF THE DAY, WITH NURSING AND OTHER STAFF, PT IS MAX ASSIST OF 2 PEOPLE DUE TO FATIGUE AND GENERALIZED WEAKNESS, WHICH ACCORDING TO THE QI GUIDELINES IS CONSIDERED DEPENDENT.
--- NOTE | 2021-10-12 13:34 | NUR ---
team meeting, recommendation: 30ft with fww. max assist for ADL's . Mod cognitive and mod severe memory. Needs assist with pills and bills. She going to stay with her daughter Becky hayes across the street at tx. tx 10/22/21 [facility] ( pt, ot, st, nursing). Outpt neuropsych. Possible needs fww. Therapy will arrange family training wit shanelle Pena. Need to see if IV ABX be changed to PO. for dc home.
--- NOTE | 2021-10-12 15:51 | NUR ---
ASSUMED CARE AT 0700. PATIENT IS ALERT AND ORIENTED X4. PATIENT PALMER'S, PATIENT HAS SUTES IN HER CERICAL NECK REGION THAT ARE DRY AND INTACT. PATIENT HAS RIGHT ARM LYMPHEDEMA. NEURO-ROD MACHINE OPERATOR HERE TO REMOVE NECK SUTURES, NO STERI-STRIPS ,LEAVE OPEN TO AIR. PATIENT IS UP TO W/C WITH ASSIST OF 1-2 STAFF IN A.M. PATIENT GETS VERY FATIGUED AFTER THERAPY AND USUALLY REQUIRES 2-3 STAFF FOR TRANSFERS. FALL AND SAFETY PROTOCOLS IN PLACE. C/O PAIN IN HER NECK AREA. MEDICATED WITH PRN PAIN MED. CONTINUES TO PROGRESS SLOWLY TOWARDS D/C GOALS. PATIENT HAS TRIPLE LUMIN I.J. FOR IV ABT. PATIENT VANCO TROUGH LEVEL 27 TODAY. ABT HELD. WILL CONTINUE TO MONITER.
[2021-10-12 19:22] VITALS: BP 154/75
--- NOTE | 2021-10-13 01:25 | NUR ---
PT ASSESSMENT COMPLETED AND VSS. MEDS GIVEN ORDERED AND WELL TOLERATED. FALL PRECAUTIONS IN PLACE. SUPPORTIVE FAMILY AT BEDSIDE EARLY DURING SHIFT. ASST WITH REPOSITION FOR COMFORT. KAHN CLAMPED ON AND OFF ORDERED. PT DOES NOT FEEL A NEED TO VOID SO FAR. KAHN DRAINING MODERATE AMOUNT OF YELLOW URINE. SLEEPING WELL. PRN PAIN MEDICATION HELPFUL. WILL CONTINUE TO MONITOR FREQUENTLY.
--- NOTE | 2021-10-13 06:16 | NUR ---
EARLY DURING THE SHIFT PT WAS NOT AWARE THAT SHE NEEDED TO VOID WHEN CLAMPED. TWO TIMES THIS MORNING PT WAS AWARE THAT SHE NEEDED TO VOID WHEN CLAMPLED.
[2021-10-13 07:15] VITALS: BP 149/75
[2021-10-13 17:58] VITALS: BP 155/60
--- NOTE | 2021-10-13 18:28 | NUR ---
Resummed care from overnight shift. Client presented pleasant and cooperative. Client has been in room resting during this shift, and has alternated between wheelchair and bed during this shift, with two staff assist. Client has expressed neck pain during this shift, and moderate anxiety. Prn given for this. Client last BM 10/13/21, and client has gotten catheter out during this shift. 400 ml urine in catheter. Since cath removal, client has voided twice and requires two staff assist. +2 edema on legs and light swelling on arms. Client has triple lumen and has received scheduled antibiotics during this shift. Well tolerated. Client is currently in bed resting. No further concerns.
[2021-10-13 20:07] VITALS: BP 165/64
--- NOTE | 2021-10-14 03:03 | NUR ---
PT ASSESSMENT COMPLETED AND VSS. MEDS GIVEN ORDERED AND WELL TOLERATED. FALL PRECAUTIONS IN PLACE. SUPPORTIVE FAMILY AT BEDSIDE EARLY DURING SHIFT. ASST WITH REPOSITION FOR COMFORT. INC OF MODERATE AMOUNT OF YELLOW URINE. 0 BM DURING SHIFT. IV MEDICATIONS GIVEN PER ORDERS. SLEEPING WELL. PRN PAIN AND ANXIETY MEDICATION HELPFUL. WILL CONTINUE TO MONITOR FREQUENTLY.
[2021-10-14 08:00] VITALS: BP 150/68
[2021-10-14 17:37] VITALS: BP 153/70
[2021-10-14 20:13] VITALS: BP 154/80
--- NOTE | 2021-10-14 23:48 | NUR ---
PT ASSESSMENT COMPLETED AND VSS. MEDS GIVEN ORDERED AND WELL TOLERATED. FALL PRECAUTIONS IN PLACE. ASST WITH REPOSITION FOR COMFORT. IV MEDICATIONS RUNNING ORDERED. PT DENIES PAIN AND ANXIETY AT THIS TIME. INC OF LARGE AMOUNT OF YELLOW URINE. SLEEPING WELL. WILL CONTINUE TO MONITOR FREQUENTLY.
[2021-10-15 08:00] VITALS: BP 157/66
--- NOTE | 2021-10-15 12:58 | NUR ---
PATIENT CARE ASSUMED AT 0700, PATIENT IN BED GOT UP TO USE BATHROOM, ALERT AND ORIENTED X3, SHE CAN BE FORGETFUL, PLEASANT AND CALM WITH CARE, TOOK MEDICATION WHOLE WITH WATER BUT ONE AT A TIME, PATIENT IS ASSIST X1, ASSESSMENT DONE, BREATH SOUND CLEAR, REGULAR HR, SKIN INTACT, NO EDEMA NOTED, ACTIVE BOWEL SOUND WITH SOFT AND ROUNDED ABDOMEN, PATIENT AMBULATE ON A WALKER. PATIENT IS ABLE TO VERBALIZE NEED, PAIN MEDICATION PRN GIVEN FOR NECK PAIN. WILL CONTINUE TO MONITOR PATIENT FOR SAFETY
--- NOTE | 2021-10-15 16:33 | NUR ---
Cm notified today that her dc date has moved to 10/19/21. She will still be going to stay with her daughter down the street from her home. IV ABX possible needed at dc. Milind rahman is able to accept at dc.
[2021-10-15 19:06] VITALS: BP 178/78
[2021-10-15 22:30] VITALS: BP 158/67
--- NOTE | 2021-10-16 05:46 | NUR ---
ASSUMED CARE AT 1915 OF 10/15. PATIENT IS A&OX3, INTERMITTENTLY FORGETFUL. TRIPLE LUMEN RIGHT CHEST IJ IN PLACE,INTACT AND PATENT. DRESSING IS CDI. MINIMAL ASSISST TO TRANSFER TO [facility] USING GB AND WALKER. REPORTED NECK/BACK PAIN, MANGED WITH PRN PAIN MEDICATION. PRN ANXIETY MEDICATION ADMINISTERED PER PATIENT REQUEST. SLEEPING DURING ROUNDS. FALL PRECAUTIONS IN PLACE, CALL LIGHT WITHIN REACH. WILL CONTINUE TO MONITOR.
[2021-10-16 10:24] VITALS: BP 162/70
--- NOTE | 2021-10-16 10:26 | H ---
[facility] [place] [address] HISTORY AND PHYSICAL Name: TEA FAUST V Room #: 513-P ADM IN M.R.#: [id number] Admission: 10/09/21 Attend Phys: Job Keating MD Discharge: Date of : 50 Report #: [id number] THIS REPORT FOR: cc: YOVANI - Family physician unknown YOVANI - Family physician unknown Job Keating MD ~ DATE OF SERVICE: 10/10/2021 HISTORY OF PRESENT ILLNESS: The patient is a 70-year-old -[place]ian female who was originally admitted on 09/13/2021 for cervical stenosis and instability with myelopathy. She was having numbness and tingling of her hands, which is intermittent. Has a history of lower back pain for 15 years. She was noted to have functional mobility and ADL deficits. She was admitted and underwent a C3 through C7 laminectomy with segmental lateral mass screw fixation using image guidance and lateral mass fusion. She had repair of enterotomy. She needed to be on bed rest with the drain that was utilized. She was subsequently cleared for mobility with wearing the [place] J collar. She had considerable problems with pain and pain management assisted with Dr. Ferrer. Pulmonary was involved with acute hypoxic respiratory failure, which did improve along with her noted history of emphysema and obstructive sleep apnea. She does have a history of morbid obesity. Her course was also complicated by bilateral upper extremity DVT. She had a new central line placed by IR right neck and the [place] J collar would not fit over that and thus the collar has been discontinued for now. Infectious Disease is involved with possible surgical site infection versus pneumonia. The patient was felt to be ready and has now been admitted for acute in-hospital inpatient rehabilitation. PAST MEDICAL HISTORY: Includes hypertension, abdominal hernia surgery, cholecystectomy, chronic back pain, COVID 06/20/2020 through 07/05/2020 at [facility], stroke with right face droop, bilateral knee replacements. MEDICATIONS: Please see the full medication listing. ALLERGIES: MORPHINE AND CODEINE ARE NOTED. SOCIAL HISTORY: Lives in a townhouse with plans to stay with her daughter upon hospital discharge. Did not utilize an assistive device. Was independent with basic ADLs although she needed assistance with IADLs. There was note of a caregiver assistance in the chart 7 days a week for 3-4 hours per visit, which it sounds like the caregiver did some housecleaning, assisted with laundry, etc. REVIEW OF SYSTEMS: The patient was seen earlier, did not offer any current complaints of chest pain, shortness of breath or abdominal discomfort. PHYSICAL EXAMINATION: GENERAL: A 70-year-old obese -[place] female [place] [address] HISTORY AND PHYSICAL Name: TEA FAUST V Room #: 513-P [facility] IN M.R.#: [id number] Admission: 10/09/21 Attend Phys: Job Keating MD Discharge: Date of : 50 Report #: [id number] was in no distress. She follows basic commands. VITAL SIGNS: Last recorded temperature is 36.9, pulse 94, respirations 22, blood pressure 160/77. HEENT: Appeared to be benign. Dressings to the posterior neck appeared to be dry. CHEST: Sounded clear to auscultation. CARDIAC: Regular rate and rhythm. ABDOMEN: Obese. Bowel sounds positive. EXTREMITIES: She does have the indwelling Maki catheter. NEUROLOGIC: She has functional range of motion of the upper extremities, with decreased at end range with her shoulders. She does have some swelling more noted of the right upper extremity than the left upper extremity and has the prior bilateral upper extremity DVTs. I would grade her strength at probably a grade 4-/5. Lower extremities, no focal calf swelling. Tone appeared to be intact. I would grade her strength at probably a grade 3+ to 4-/5. Prior to coming up to rehabilitation, she has been starting to get up and did ambulate 14 feet, which is significant progress for her prior to coming up to the rehabilitation manjarrez. She was min assist with the front-wheeled walker. ASSESSMENT: A 70-year-old -[place] female with the following problem list: 1. Cervical stenosis and myelopathy, status post fusion, with dural leak repair 09/13/2021. 2. Bilateral upper extremity deep venous thrombosis. 3. Prior acute hypoxic respiratory failure, which has improved. 4. Left shoulder pain has improved. 5. Obstructive sleep apnea. 6. Hypertension. 7. Obesity. 8. History of COVID. PLAN: The patient has been admitted for acute in-hospital inpatient rehabilitation. Please see the patient's previous and current functional status. As far as risk of complication, she has multiple medical comorbidities as noted above. The initial plan of care involves the interdisciplinary acute inpatient rehabilitation program. Measurable functional goals would be for the patient to improve as far as basic functional mobility and ADLs as well as cognition, which will be further evaluated to hopefully improve her overall independence, so she can return back to the home setting. Prognosis is reasonably good with estimated length of stay probably at least 14 days. Potential barriers would include her multiple medical comorbidities and decreased functional status. The patient meets diagnostic criteria for an acute in-hospital inpatient rehabilitation stay. She meets the medical necessity criteria and we will have [address] [address] HISTORY AND PHYSICAL Name: TEA FAUST V Room #: 513-P ADM IN M.R.#: [id number] Admission: 10/09/21 Attend Phys: Job Keating MD Discharge: Date of : 50 Report #: [id number] the multiple it infrastructure consultant physicians continue to follow. She does have the tolerance for therapies and has appropriate discharge goals back to the home setting. <ELECTRONICALLY SIGNED> By: Job Keating MD 10/16/21 1026 0923 [id number] Job Keating MD /nt
--- NOTE | 2021-10-16 10:27 | PLAN ---
[facility] [address] [address] REHAB UNIT PLAN OF CARE Name: TEA FAUST V Room #: 513-P ADM IN M.R.#: [id number] Admission: 10/09/21 Attend Phys: Job Keating MD Discharge: Date of : 50 Report #: [id number] THIS REPORT FOR: cc: FAM - Family physician unknown FAM - Family physician unknown Job Keating MD ~ DATE OF SERVICE: 10/11/2021 PROGRESS NOTE/OVERALL PLAN OF CARE HISTORY OF PRESENT ILLNESS: The patient is seen back today in followup. She is alert, pleasant, in no distress. Temperature 36.6, pulse 87, respirations 20, blood pressure 145/65. She continues to have significant right upper extremity edema. She is elevating the right upper extremity. She can move the right hand, but has difficulty with full engineered wood designer due to the swelling of her upper extremity. No specific warmth per se. No focal calf swelling. She is pleasant and alert. Transfers are mod assist with gait, min assist 6 feet with a front-wheeled walker. In occupational therapy, upper body dressing is dependent with lower body dressing being further assessed. Speech therapy has seen her and noted [id number] cognitive deficits with xcqhwhdx-ro-kakkmb memory deficits. ASSESSMENT: A 70-year-old female with the following problem list: 1. Cervical stenosis and myelopathy, status post fusion with dural leak repair, 09/13/2021. 2. Bilateral upper extremity deep venous thrombosis. 3. Right upper extremity swelling post-DVT. She is now greater than 2 weeks post-diagnosis and is on blood thinners and I discussed with occupational therapy doing some gentle lymphedema therapy to try to decrease some of the edema. 4. Prior acute hypoxic respiratory failure, which has improved. 5. Left shoulder pain has improved. 6. Obstructive sleep apnea. 7. Hypertension. 8. Obesity. PLAN: The overall plan of care is based on the pre-admit screen and information garnered from therapy assessments. 1. Estimated length of stay is probably at least 14 days, potentially longer if warranted. 2. Medical prognosis is reasonably good. 3. Anticipated interventions includes the interdisciplinary acute inpatient rehabilitation program. 4. Anticipated functional outcomes would be for the patient to become modified independent with transfers, mobility, ADLs and improved cognition, so she can return back to the home setting. Goal is to have [place] [address] REHAB UNIT PLAN OF CARE Name: TEA FAUST V Room #: 513-P [facility] IN [facility].#: [id number] Admission: 10/09/21 Attend Phys: Job Keating MD Discharge: Date of : 50 Report #: [id number] least ideally with the walker and to be maximal independent with basic ADLs. 5. Discharge destination would be to stay with her daughter upon discharge. 6. Expected therapy by discipline includes PT, OT and speech 1 hour per day each 5 days a week throughout the duration of the acute inpatient rehabilitation stay. ADDENDUM: The patient's prognosis for significant practical improvement within a reasonable period of time appears good. Given the patient's complex medical condition and risk of further medical complication, rehabilitation services could not be safely provided at a lower level of care such as a prison facility. <ELECTRONICALLY SIGNED> By: Job Keating MD 10/16/21 1027 0937 1013 Job Keating MD /nt
--- NOTE | 2021-10-16 11:31 | NUR ---
PATIENT CARE ASSUMED AT 0700, PATIENT STILL IN BED SLEEPING, GOT PATIENT UP FOR ASSESSMENT, ALERT AND ORIENTED X3, PATIENT IS PLEASANT WITH CARE, SHE TOOK MEDICATION WHOLE WITH WATER, ONE PILL AT A TIME, PATIENT HAD A BOWEL MOVEMENT, SHE IS ASSIST X1-2, SHE AMBULATE WITH A WALKER, BREATH SOUND CLEAR, ACTIVE BOWEL SOUND WITH SOFT AND ROUNDED ABDOMEN, TEMP 98.1, HR 88, RR 18, B/P 162/70, SKIN INTACT, SOME EDEMA NOTED ON LEGS. WILL CONTINUE TO MONITOR PATIENT FOR SAFETY
[2021-10-16 20:35] VITALS: BP 152/69
--- NOTE | 2021-10-17 01:08 | NUR ---
assumed care approx 1900 evening 10/16. pt sitting in recliner at change of shift asking to get into bed. pt alert and oriented x4, appropriate and cooperative. pt mod assist to bsc to void and then into bed with pivot transfer tolerating well. pt took hs meds with water tolerating well. pt up to bsc once so far this night. pt given pain pill as ordered. pt requested to have fredy wraps removed from her right hand/arm stating they were too tight and pt states she was told by therapist who wrapped her arm that if it became too uncomfortable for her she could remove them and therapist will redress on Monday. removed wraps and replaced limb bracelet as it broke off arm. placed pts arm up on pillow. bed alarm on and call light in reach. will continue to monitor.
[2021-10-17 07:06] VITALS: BP 154/61
--- NOTE | 2021-10-17 09:09 | NUR ---
PT SITTING UP IN THE CHAIR THIS AM FOR BREAKFAST. PT STATED PAIN TO LEFT SHOULDER AND HAS LIDOCAINE PATCH TO AREA. INCISION TO NECK IS WELL APPROXIMATED AND NO SIGNS OF DRAINAGE OR REDDNESS. PT RT ARM IS SWOLLEN TO HANDS, ELEVATED ARM ON X2 PILLOWS. PT REFUSED ANY PO PAIN MEDICATION. PT TOOK MEDS WITH WATER. PT HAS LIMITED MOTION TO ARMS BILATERAL. PT HAS RT JUGULAR IV THAT IS SL.
--- NOTE | 2021-10-17 10:35 | NUR ---
VASCULAR ACCESS NURSE ROUNDING. THIS PATIENT IS NOT ON IV MEDS AND THE CENTRAL LINE IS NO LONGER NECESSARY. SPOKE TO THE K9 HANDLER TO REQUEST AN ORDER FOR REMOVAL WHEN THE MD ROUNDS
--- NOTE | 2021-10-17 14:09 | NUR ---
ADM OXYCODONE 7.5MG PO FOR PAIN TO HEAD OF 8 ON 1-10 SCALE.
--- NOTE | 2021-10-17 16:31 | NUR ---
IV TEAM HERE TO D/C RT JUGULAR IV ACCESS.
--- NOTE | 2021-10-17 18:43 | NUR ---
ORDER OBTAIN BY MUSIC PROFESSOR FOR CENTRAL LINE REMOVAL- THE RIGHT IJ CENTRAL LINE WAS REMOVED PER POLICY AND PRESSURE HELDX 5MN. AM OCCLUSIVE DRESSING APPLIED
[2021-10-17 19:19] VITALS: BP 162/62
--- NOTE | 2021-10-17 23:50 | NUR ---
PT ASSESSMENT COMPLETED AND VSS. MEDS GIVEN ORDERED AND WELL TOLERATED. FALL PRECAUTIONS IN PLACE. UP TO THE BSC WITH ASST/GAIT/WALKER. STEADY. VOIDING MODERATE AMOUNT OF YELLOW URINE. PRN PAIN MEDICATION WORKING WELL. SLEEPING AT THIS TIME. WILL CONTINUE TO MONITOR FREQUENTLY.
[2021-10-18 04:03] LABS: ABSOLUTE NEUTROPHILS 2.6 thou/uL (1.4-8.2); BASOPHILS 1.8 % (0.0-2.0); EOSINOPHILS 2.6 % (0.0-3.0); HEMOGLOBIN 9.8 gm/dL (12.0-15.0); LYMPHOCYTES 33.5 % (24.0-44.0); MCH 28.9 pg (26.0-34.0); MCHC 32.5 g/dL (28.0-37.0); MCV 88.9 fL (80.0-100.0); MONOCYTES 11.7 % (1.0-8.0); PLATELET COUNT 252 thou/uL (150-400); POLYS 50.4 % (36.0-66.0); RBC 3.38 mil/uL (4.20-5.00); RDW 15.4 % (10.5-14.5); WBC 5.2 thou/uL (4.0-11.0)
[2021-10-18 04:21] LABS: CALCIUM 8.4 mg/dL (8.5-10.1); CREATININE 0.7 mg/dL (0.6-1.0); MAGNESIUM 1.4 mg/dL (1.8-2.4)
[2021-10-18 04:26] LABS: POTASSIUM 2.8 mmol/L (3.5-5.1)
[2021-10-18 07:40] VITALS: BP 152/89
--- NOTE | 2021-10-18 09:37 | NUR ---
PT SITTING UP IN RECLINER THIS AM. PT STATED SHE HAS PAIN TO HER NECK OF 7 ON 1-10 SCALE. PT REQUESTING A PAIN MED AND ONLY WILL TAKE THAT AT THIS TIME AND NOT OTHER MEDS. ADM OXYCODONE 7.5MG PO FOR PAIN TO NECK. INCISION IS WELL APPROXIMATED AND NO SIGNS OF INFECTION. PT GETTING RT ARM WRAPPED WITH LYMPHEDEMA NURSE AT THIS TIME.
--- NOTE | 2021-10-18 11:17 | NUR ---
ADM KDUR 40MEQ PO IN APPLESAUCE PER ORDERS. PT TOOK OTHER AM MEDS AT THIS TIME.
--- NOTE | 2021-10-18 12:21 | NUR ---
ADM MAG 800MG PO PER ORDERS X1.
--- NOTE | 2021-10-18 15:28 | NUR ---
ADM OXYCODONE 7.5MG PO FOR PAIN TO NECK OF 7 ON 1-10 SCALE. PT SITTING UP IN CHAIR AFTER THERAPY.
--- NOTE | 2021-10-18 16:20 | NUR ---
Cm returned a call to yobani daughter sravanthi, she had question about dc tomorrow. Cm provided education about dc. Sravanthi address is [address] [facility] [address] [facility] [address], phone # [phone]. Yobani will be staying with sravanthi for a while. Walk in apartment, no step to enter or stairs inside.
[2021-10-18 19:35] VITALS: BP 151/67
--- NOTE | 2021-10-18 23:19 | NUR ---
PT ASSESSMENT COMPLETED AND VSS. MEDS GIVEN ORDERED AND WELL TOLERATED. FALL PRECAUTIONS IN PLACE. UP TO THE BSC WITH ASST/GAIT/WALKER. STEADY. ASST WITH REPOSITION FOR COMFORT. PRN PAIN MEDICATION WORKING WELL. SLEEPING AT THIS TIME. WILL CONTINUE TO MONITOR FREUQUENTLY.
[2021-10-19 05:53] LABS: CALCIUM 8.8 mg/dL (8.5-10.1); CREATININE 0.7 mg/dL (0.6-1.0); MAGNESIUM 1.6 mg/dL (1.8-2.4); POTASSIUM 3.7 mmol/L (3.5-5.1)
[2021-10-19 07:00] VITALS: BP 151/65
[2021-10-19 08:09] VITALS: BP 151/65
[2021-10-19] MEDS ORDERED: ELIQUIS5 MG PO (08:35)
[2021-10-19] MEDS ORDERED: VITAMIN D325 MC2 PO (08:35)
[2021-10-19] MEDS ORDERED: FLEXERIL PO (08:35)
[2021-10-19] MEDS ORDERED: ARTHRITIS PAIN100 GM TOP (08:35)
[2021-10-19] MEDS ORDERED: KLOR-CON M2020 MEQ PO (08:35)
[2021-10-19] MEDS ORDERED: MIRALAX17 GM PO (08:35)
[2021-10-19] MEDS ORDERED: MAGNESIUM400 MG PO (08:36)
[2021-10-19 08:44] VITALS: BP 151/65
--- NOTE | 2021-10-19 08:44 | NUR ---
PT SITTING UP IN THE CHAIR FOR BREAKFAST. PT DID TAKE MIRALAX THIS AM. PT LUNGS CLEAR. PT INSICION TO BACK ON NECK IS WELL APPROXIMATED AND NO SIGNS OF INFECTION. PT STATED SHE HAS PAIN TO LEFT SIDE OF NECK OF 7 ON 1-10 SCALE. PT UP WITH WALKER WITH STAND-BY ASSIST. PT RT ARM IS WRAPPED IN ACOSTA BANDAGE FROM LYMPHEDEMA NURSE YESTERDAY. PT DRESSING IS DRY TO RT NECK FROM PREVIOUS JUGULAR IV D/C.
--- NOTE | 2021-10-19 09:57 | NUR ---
Cm notified that family was here and got her belonging but she will need a ride home. ok for express, will arrange transportation to her daughter sravanthi home. Provider plus to deliver fww today before dc.
--- NOTE | 2021-10-19 10:00 | NUR ---
ADM OXYCODONE 7.5MG PO FOR PAIN TO LEFT SIDE OF NECK OF 7 ON 1-10 SCALE. FAMILY IS HERE TO HELP HER PACK UP HER BELONGINGS. PT GOING HOME TODAY.
[2021-10-19] MEDS ORDERED: TYLENOL325 MG PO (11:04)
[2021-10-19] MEDS ORDERED: CARVEDILOL12.5 MG PO (11:04)
--- NOTE | 2021-10-19 13:49 | NUR ---
PT LEFT VIA W/C TO CAR. PT WAS ABLE TO STAND AND TRANSFER TO CAR. PT VERBALY UNDERSTOOD D/C ORDERS AND WAS EXCITED TO GO HOME. PT HAS WALKER THAT WAS DELIVERED.
== END 2021-10-19 13:45 | disposition home health service (06) | DRG 947 ==
PROVIDERS: Internal Medicine; Nurse Practitioner; ADMIT Physical Medicine & Rehabilitation; ATTEND Physical Medicine & Rehabilitation
PROC: 05HY33Z Insertion of Infusion Device into Upper Vein, Percutaneous Approach (ICD-10-PCS; principal; 2021-10-09)
DX: R53.81 Other malaise (principal); J96.21 Acute and chronic respiratory failure with hypoxia; G95.89 Other specified diseases of spinal cord; E44.0 Moderate protein-calorie malnutrition; Z68.42 Body mass index [BMI] 45.0-49.9, adult; M48.02 Spinal stenosis, cervical region; G47.33 Obstructive sleep apnea (adult) (pediatric); M25.512 Pain in left shoulder; I10 Essential (primary) hypertension; G89.29 Other chronic pain; M54.9 Dorsalgia, unspecified; Z96.653 Presence of artificial knee joint, bilateral; D64.9 Anemia, unspecified; E66.01 Morbid (severe) obesity due to excess calories; E87.6 Hypokalemia; G31.84 Mild cognitive impairment of uncertain or unknown etiology; F41.9 Anxiety disorder, unspecified; E83.42 Hypomagnesemia; Z90.49 Acquired absence of other specified parts of digestive tract; Z88.6 Allergy status to analgesic agent; Z88.8 Allergy status to other drugs, medicaments and biological substances; Z86.73 Personal history of transient ischemic attack (TIA), and cerebral infarction without residual deficits
CPT/HCPCS: 10112